=== PATIENT | female | born 1975 | race Caucasian/White ===

== ENCOUNTER 2022-05-23 18:02 | Inpatient (IN) | payer MEDICAID, SELFPAY ==
[2022-05-23 18:16] VITALS: BP 118/99; RESP 18; TEMP 36.7; O2SAT 92
[2022-05-23 18:39] LABS: Basophils # 0.1 10^3/uL (0.0-0.1); Basophils % 0.9 %; Eosinophils # 0.2 10^3/uL (0.0-0.8); Eosinophils % 1.7 %; Hematocrit 43.1 % (37.0-47.0); Hemoglobin 14.5 g/dL (11.5-15.3); Lymphocytes # 3.2 10^3/uL (0.8-4.8); Lymphocytes % 31.6 %; Mean Corpuscular HGB Conc 33.6 g/dL (30.0-36.0); Mean Corpuscular Hemoglobin 31.7 pg (28.0-34.0); Mean Corpuscular Volume 94.1 fl (81-99); Mean Platelet Volume 9.3 fL (7.4-10.4); Monocytes # 0.7 10^3/uL (0.2-0.9); Monocytes % 6.6 %; Neutrophils # 6.03 10^3/uL (1.8-7.7); Neutrophils % 58.9 %; Nucleated Red Blood Cells % 0 %; Platelet Count 348 10^3/cmm (130-400); Red Blood Count 4.58 10^6/uL (4.1-5.3); Red Cell Distribution Width 12.9 % (12.1-15.1); White Blood Count 10.2 10^3/uL (4.0-10.0)
--- NOTE | 2022-05-23 18:47 | W.ED.PSYCHS ---
HPI - Psych General: Chief Complaint: Psychiatric Symptoms Stated Complaint: SUICIDAL/ HOMICIDAL IDEATIONS Time Seen by Provider: 05/23/22 18:12 History of Present Illness: Patient arrives to the emergency room with complaints of altered mental status. Patient having full body tics, laughing hysterically and auditory hallucinations, She is in a manic state with intermittent moments of lucidity. Patient denies any suicidal homicidal ideation at this moment patient denies any substance use. Patient has episodes of tangential and pressured speech. MD complaint: altered mental status Onset (ago): unknown Duration: constant Relieving factors: none Exacerbating factors: none Associated psychiatric symptoms: racing thoughts, auditory hallucinations and delusions Associated symptoms: Reports auditory hallucinations, delusions and racing thoughts Treatments prior to arrival: none Review of Systems General: Reports: ROS unobtainable due to mental status Psych: Reports: auditory hallucinations Physical Exam Const: COMMON NORMALS: no acute distress, average body habitus, healthy appearing, alert and well nourished EXAM LIMITATIONS: altered mental status ORIENTATION/CONSCIOUSNESS: Yes oriented to person HENMT: COMMON NORMALS: normocephalic, atraumatic, hearing grossly normal bilaterally, external ears normal, Normal external nose present and moist oral mucous membranes HEAD & SCALP: normocephalic and atraumatic NOSE: Normal external nose present EXTERNAL EAR: Yes external ears normal Eye: COMMON NORMALS: Equal, round and reactive pupils present, EOMs intact bilaterally, conjunctivae normal and no scleral icterus CONJUNCTIVA: Yes conjunctivae normal PUPIL: Yes Equal, round and reactive pupils present Neck/C-Spine: COMMON NORMALS: full ROM, no lymphadenopathy, supple, no meningeal signs, no JVD and Thyroid normal THYROID: Thyroid normal Chest: COMMONS NORMALS: normal inspection of the chest and normal palpation of entire chest wall Resp: COMMON NORMALS: normal respiratory effort, No retractions, No use of accessory muscles and clear to auscultation bilaterally AUSCULTATION: clear to auscultation bilaterally Cardio: COMMON NORMALS: no JVD, regular rate, regular rhythm, S1 normal heart sound present and S2 normal heart sound present RATE: regular rate RHYTHM: regular rhythm HEART SOUNDS: S1 normal heart sound present and S2 normal heart sound present GI: COMMON NORMALS: Normal to inspection, nondistended, normoactive bowel sounds present, Soft to palpation, non-tender, No hepatosplenomegaly present and no masses PALPATION: Yes Soft to palpation and Yes No hepatosplenomegaly present Neuro: SENSORIUM/ORIENTATION: Yes alert and Yes oriented to person MENINGEAL SIGNS: Yes no meningeal signs Psych: THOUGHT CONTENT: Yes delusions, Yes Hallucination(s) present and Yes Ideas of reference present (thought content) Course Vital Signs: Vital signs: Vital Signs Temperature 98.1 F 05/23/22 18:16 Respiratory Rate 18 05/23/22 18:16 Blood Pressure 118/99 05/23/22 18:16 Pulse Oximetry 92 05/23/22 18:16 Oxygen Delivery Me thod 05/23/22 18:16 MDM - Psych Medical Decision Making Patient presents to the ER with what appears to be an acute psychosis. Patient is having auditory and visual hallucinations laughing hysterically has tangential flight of ideas and speech. Patient then become agitated and aggressive to the point of needing medicated. Patient was given 2 mg Ativan IM. Normal psych labs was obtained. Which were essentially benign other than positive from THC. Dr. Narvaez was consulted and agreed for inpatient admission. Differential Diagnosis Likely acute psychosis, chronic schizophrenia, bipolar disorder and drug-induced psychotic disorder Lab Data 05/23/22 18:25 05/23/22 18:25 Laboratory Results WBC 10.2 10^3/uL (4.0-10.0) H 05/23/22 18:25 RBC 4.58 10^6/uL (4.1-5.3) 05/23/22 18:25 Hgb 14.5 g/dL (11.5-15.3) 05/23/22 18:25 Hct 43.1 % (37.0-47.0) 05/23/22 18:25 MCV 94.1 fl (81-99) 05/23/22 18:25 MCH 31.7 pg (28.0-34.0) 05/23/22 18:25 MCHC 33.6 g/dL (30.0-36.0) 05/23/22 18:25 RDW 12.9 % (12.1-15.1) 05/23/22 18:25 Plt Count 348 10^3/cmm (130-400) 05/23/22 18:25 MPV 9.3 fL (7.4-10.4) 05/23/22 18:25 Neut % (Auto) 58.9 % 05/23/22 18:25 Lymph % (Auto) 31.6 % 05/23/22 18:25 [place] % (Auto) 6.6 % 05/23/22 18:25 Eos % (Auto) 1.7 % 05/23/22 18:25 Baso % (Auto) 0.9 % 05/23/22 18:25 Neut # (Auto) 6.03 10^3/uL (1.8-7.7) 05/23/22 18:25 Lymph # (Auto) 3.2 10^3/uL (0.8-4.8) 05/23/22 18:25 [place] # (Auto) 0.7 10^3/uL (0.2-0.9) 05/23/22 18:25 Eos # (Auto) 0.2 10^3/uL (0.0-0.8) 05/23/22 18:25 Baso # (Auto) 0.1 10^3/uL (0.0-0.1) 05/23/22 18:25 Nucleated RBC % (auto) 0 % 05/23/22 18:25 Nucleated RBCs # 0.0 /100WBC 05/23/22 18:25 Sodium 142 mmol/L (136-145) 05/23/22 18:25 Potassium 4.5 mmol/L (3.5-5.1) 05/23/22 18:25 Chloride 102 mmol/L (98-107) 05/23/22 18:25 Carbon Dioxide 25 mmol/L (22-29) 05/23/22 18:25 Anion Gap 19.5 (5-19) H 05/23/22 18:25 BUN 13 mg/dL (6-20) 05/23/22 18:25 Creatinine 0.7 mg/dL (0.5-0.9) 05/23/22 18:25 GFR Calculation 89.3 mL/min (90-130) L 05/23/22 18:25 Glucose 74 mg/dL (65-115) 05/23/22 18:25 Calculated Osmolality 293 mOsm/kg (285-295) 05/23/22 18:25 Calcium 9.4 mg/dL (8.5-10.5) 05/23/22 18:25 Total Bilirubin 0.6 mg/dL (0.15-1.2) 05/23/22 18:25 AST 19 U/L (0-32) 05/23/22 18:25 ALT 11 U/L (0-33) 05/23/22 18:25 Alkaline Phosphatase 76 U/L (35-105) 05/23/22 18:25 Total Protein 6.9 g/dL (6.6-8.7) 05/23/22 18:25 Albumin 4.4 g/dL (3.5-5.2) 05/23/22 18:25 Globulin 2.5 g/dL (1.3-4.6) 05/23/22 18:25 HCG, Qual Negative (Negative) 05/23/22 19:26 Urine Color Yellow (Yellow) 05/23/22 19:26 Urine Appearance Clear (CLEAR) 05/23/22 19:26 Urine pH 5 (5-7) 05/23/22 19:26 Ur Specific [place] 1.025 (1.005-1.030) 05/23/22 19:26 Urine Protein Trace (Negative) 05/23/22 19:26 Urine Glucose (UA) Norm (Normal) 05/23/22 19:26 Urine Ketones 2+ (Negative) H 05/23/22 19:26 Urine Blood 2+ (Negative) H 05/23/22 19:26 Urine Nitrate Negative (Negative) 05/23/22 19:26 Urine Bilirubin Neg (Negative) 05/23/22 19:26 Urine Urobilinogen Norm mg/dL (Negative) 05/23/22 19:26 Ur Leukocyte Esterase Trace (Negative) H 05/23/22 19:26 Urine RBC 0-4 /hpf (0-2) H 05/23/22 19:26 Urine WBC 5-10 /hpf (0-5) H 05/23/22 19:26 Ur Squamous Epith Cells 10-15 /hpf (0-5) H 05/23/22 19:26 Amorphous Sediment Not Reportable 05/23/22 19:26 Urine Bacteria 1+ /hpf (NONE) H 05/23/22 19:26 Urine Mucus 4+ /hpf 05/23/22 19:26 Salicylates < 0.3 mg/dL (3-10) L 05/23/22 18:25 Urine Opiates Screen Negative ng/mL (Negative) 05/23/22 19:26 Acetaminophen < 5.0 ug/mL (10-30) L 05/23/22 18:25 Ur Barbiturates Screen Negative ng/mL (Negative) 05/23/22 19:26 Ur Phencyclidine Scrn Negative ng/mL (Negative) 05/23/22 19:26 Ur Amphetamines Screen Negative ng/mL (Negative) 05/23/22 19:26 U Benzodiazepines Scrn Negative ng/mL (Negative) 05/23/22 19:26 Urine Cocaine Screen Negative ng/mL (Negative) 05/23/22 19:26 U Marijuana (THC) Screen Positive ng/mL (Negative) H 05/23/22 19:26 Ethyl Alcohol < 10 mg/dL (0-10) 05/23/22 18:25 Discharge Plan Discharge Patient Disposition: Admitted As Inpatient Clinical Impression: Acute psychosis Condition: Stable Prescriptions: No Action No Known Home Medications Referrals: Sarah Lo HAND TWISTER [Primary Care Provider] - Coding Level of Care Code ED [facility] for Ayaz Kendrick
[2022-05-23 18:59] LABS: Alanine Aminotransferase 11 U/L (0-33); Albumin Level 4.4 g/dL (3.5-5.2); Alkaline Phosphatase 76 U/L (35-105); Anion Gap 19.5 (5-19); Aspartate Amino Transferase 19 U/L (0-32); Blood Urea Nitrogen 13 mg/dL (6-20); Calcium 9.4 mg/dL (8.5-10.5); Carbon Dioxide 25 mmol/L (22-29); Chloride 102 mmol/L (98-107); Globulin 2.5 g/dL (1.3-4.6); Glomerular Filtration Rate 89.3 mL/min (90-130); Glucose 74 mg/dL (65-115); Osmolality Calculated 293 mOsm/kg (285-295); Potassium 4.5 mmol/L (3.5-5.1); Sodium 142 mmol/L (136-145); Total Bilirubin 0.6 mg/dL (0.15-1.2); Total Protein 6.9 g/dL (6.6-8.7)
[2022-05-23 19:02] LABS: Acetaminophen < 5.0 ug/mL (10-30); Alcohol Level < 10 mg/dL (0-10); Salicylate < 0.3 mg/dL (3-10)
--- NOTE | 2022-05-23 19:51 | PC.NURSE ---
cad application support specialist had staff nurse talk to pt. PT was found by staff nurse fondling her genitalia. Pt was advised to stop, and it was reported that she was hitting the wall with her head. Pt was redirected by staff nurse. Pt complied.
[2022-05-23 19:52] LABS: HCG Qualitative Urine. Negative (Negative)
[2022-05-23] MEDS: LORazepam 2 mg/mL INJ 1 mL IM (20:12)
[2022-05-23 20:14] LABS: Add Urine Microscopic? YES; Bilirubin Urine Neg (Negative); Blood Urine 2+ (Negative); Glucose Urine UA Norm (Normal); Ketones Urine 2+ (Negative); Leukocyte Esterase Urine Trace (Negative); Nitrate Urine Negative (Negative); Protein Urine Trace (Negative); Specific Gravity, Urine 1.025 (1.005-1.030); Urine Appearance Clear (CLEAR); Urine Color Yellow (Yellow); Urobilinogen Urine Norm (Negative); pH Urine 5 (5-7)
[2022-05-23 20:15] LABS: Add Urine Culture? No; Bacteria Urine 1+ /hpf; Mucus Urine 4+ /hpf; RBC Urine 0-4 /hpf (0-2)
[2022-05-23 20:27] LABS: Amphetamines Screen Urine Negative (Negative); Barbiturates Screen Urine Negative (Negative); Benzodiazepines Screen Urine Negative (Negative); Cocaine Screen Urine Negative (Negative); Opiate Screen Urine Negative (Negative); PCP Screen Urine Negative (Negative); THC Screen Urine Positive (Negative)
--- NOTE | 2022-05-23 23:20 | PC.NURSE ---
report called to rosendo MORFIN
[2022-05-23 23:35] VITALS: RESP 16
--- NOTE | 2022-05-23 23:40 | PC.NURSE ---
pt refusing admission assessment or to change out into unit scrubs. wanded and no metal was detected. pt room close to nurses station so door will remain open for safe monitoring until pt can/will comply with changing out.
[2022-05-24] VITALS: RESP 18
--- NOTE | 2022-05-24 00:01 | PC.NURSE ---
pt refused v/s upon entry to the NPU.
[2022-05-24] MEDS: LORazepam 2 mg/mL INJ 1 mL IM ×2 (03:40→11:00)
[2022-05-24] MEDS: haloperidol inj 5 mg/mL INJ 1 mL IM ×2 (03:40→11:00)
[2022-05-24] MEDS: diphenhydrAMINE 50 mg/mL SDV 1mL IM ×2 (03:40→11:00)
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
[2022-05-24 06:00] VITALS: RESP 16
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
--- NOTE | 2022-05-24 09:07 | PC.NURSE ---
patient given PRNs during the night and remains asleep with snoring even respirations. Did not wake patient for breakfast
--- NOTE | 2022-05-24 12:13 | W.PM.BREST ---
Face to Face: Restrn/Seclusion Events leading up to initiation: Verbalizing threat to self or others and Combative/Striking out at staff or others Evaluation of patient's immediate situation: Alert and oriented Patient reaction since intervention applied: De-escalation/no displays of violent/destructive behavior Recent labs reviewed: Yes Review of medications: Yes Patient's current medical/behavioral condition: No new concerns since last ROS Need for restraint or seclusion is: No longer present Attending notified: Attending completed assessment
--- NOTE | 2022-05-24 12:43 | PC.NURSE ---
event started 1036 Pt walked into the dayroom area without pants on, naked from the waist down. Nursing staff asked 2 male pt's to please exit the dayroom. Pt was yelling and screaming that she wanted her dad and her daughter to come to the unit!! Nurse asked pt to please get dressed and then we could assist pt with making phone calls. Pt refused to get dressed and to give up her bra that had underwires in it, which is a safety hazard on this unit. Pt kept screaming that she didn't care that she loves to be naked! Nurse noticed visible stool on pt's arms and legs, nurse began to help use wipes to clean up the pt. Pt refused to get dressed, nurse placed a sheet around pt and pt walked up to the phone to make a call. Redirection was not working on pt, pt not complying with unit rules. Code 10 was called and lots of personal responded. This nurse pulled the medications, 2mg Ativan IM, 50mg Benadryl IM, 5mg Haldol IM. Jack brown responded, Bryant Caceres responded, continuous weld pipe mill supervisor was present and actively helping with the pt. Security was present. Pt still refusing to cooperate. Staff went hands on for a manual hold, just long enough to administer the medications. Pt was escorted to her room and helped with cleaning up the stool on her body, nurses helped change pt out and was able to retrieve the bra from the pt. Pt was very nice and polite and laid down for a nap.
[2022-05-24 14:00] VITALS: RESP 15
[2022-05-24 22:00] VITALS: RESP 16
[2022-05-25] MEDS: haloperidol inj 5 mg/mL INJ 1 mL IM (02:26)
[2022-05-25] MEDS: LORazepam 2 mg/mL INJ 1 mL IM (02:26)
[2022-05-25] MEDS: diphenhydrAMINE 50 mg/mL SDV 1mL IM (02:27)
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
[2022-05-25 06:00] VITALS: RESP 15
[2022-05-25] MEDS: nicotine 2 mg Gum BUCCAL ×3 (09:03→18:06)
[2022-05-25] MEDS: loratadine 10 mg Tablet PO (12:45)
[2022-05-25 14:00] VITALS: BP 150/102; PULSE 108; RESP 18; TEMP 36.6; O2SAT 99
--- NOTE | 2022-05-25 17:05 | W.PM.NPUPNS ---
Subjective NPU Subjective: Patient is a 47-year-old white female admitted with acute psychosis. She remains here on a 96-hour hold. She had not been aggressive today and had been redirectable. She had reported having no sleep for several days. She had described in the past having been placed on lithium for treating an unspecified problem but states that it affected her thyroid. She had reported that she was willing to get help for any thing that would help her sleep. She had reported having gone many years without receiving treatment with psychotropic medications. Staff notes the patient appeared to be pacing but was redirectable with no acts of aggression noted. Mental Status Exam MSE Comments: The patient appears older than her stated age. She is a thin white female with poor hygiene and normal gait. There was no evidence of any abnormal involuntary motor movements tics or tremors appreciated. She was pleasant and pacing the hallway during our interview but was engaged in the conversation. Her speech was rapid in rate and normal in volume and prosody. Her mood was described as okay. Her affect appeared somewhat flat. Her thought process was at times tangential. Her thought content showed no evidence of active homicidal or suicidal ideation. There appeared to be some overvalued ideas and paranoia. There were no clear overt bizarre delusions noted though. Her insight was poor. Her judgment is poor. Her impulse control remained limited. She was alert and oriented to person place and time. Vitals/I&O/Wt Last Vital Signs Temp 97.8 F 05/25/22 14:00 Pulse 108 H 05/25/22 14:00 Resp 18 05/25/22 14:00 BP 150/102 05/25/22 14:00 Pulse Ox 99 05/25/22 14:00 O2 Del Method Room Air 05/23/22 22:01 Weight last 48 hrs Weight 68.039 kg Data NPU 05/23/22 18:25 05/23/22 18:25 A&P Assessment and plan (1) Bipolar affective, manic, unspec: Plan The patient is a 47-year-old white female who presents acutely psychotic with causes unknown currently involuntarily hospitalized and unable to provide any clear history at this time. She will continue to require acute inpatient hospitalization. 1.? Engage patient in individual ,milieu, and group therapy 2. Begin Invega 3mg at night 3. TO-15 minute checks on the unit Involuntary Hold Information 96 Hour Hold: 96 Hour Involuntary Admission: Yes 96 Hour Hold Ending Date: 05/29/22 96 Hour Hold Ending Time: 20:42 Attestations NPU Medical Necessity Statement*: Inpatient hospitalization is medically necessary and deemed to be the clinically appropriate decision at this time. We will initiate medications and make changes as indicated. Her likely length of stay is 7 to 10 days. Coding Level of Care Code Acute Code for g Fwd Diagnoses Bipolar affective, manic, unspec F31.10
[2022-05-25] MEDS: paliperidone ER 3 mg Tablet PO (21:34)
[2022-05-25 21:49] VITALS: BP 140/96; PULSE 105; RESP 16; TEMP 36.6; O2SAT 98
[2022-05-26] MEDS: nicotine 4 mg lozenge MUCOUS MEM (05:27)
[2022-05-26 06:00] VITALS: BP 124/86; PULSE 109; RESP 16; TEMP 36.9; O2SAT 97
[2022-05-26] MEDS: loratadine 10 mg Tablet PO (08:09)
[2022-05-26] MEDS: nicotine 2 mg Gum BUCCAL ×3 (09:06→18:22)
[2022-05-26 12:05] LABS: Thyroid Stimulating Hormone 4.71 uIU/mL (0.27-4.20)
[2022-05-26 14:00] VITALS: BP 133/85; PULSE 111; RESP 18; TEMP 36.5; O2SAT 97
[2022-05-26] MEDS: paliperidone ER 3 mg Tablet PO ×2 (15:15→21:18)
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
--- NOTE | 2022-05-26 16:05 | PC.NURSE ---
Patient became agitated during group hours because she was not allowed to use the phone. Began cursing about needing to call her dad to get a good classifications officer cc/cm. Doctor ordered a dose of 3mg Invega to be given and patient seemed to calm after administration.
[2022-05-26 22:00] VITALS: BP 146/88; PULSE 107; RESP 18; TEMP 36.7; O2SAT 97
[2022-05-26] MEDS: hydrocortisone 2.5% cream 28 gm 1 APPLIC TOPICAL (22:32)
[2022-05-27] MEDS: nicotine 2 mg Gum BUCCAL ×5 (02:29→18:08)
[2022-05-27] MEDS: OLANZapine 5 mg ODT PO ×2 (03:04→22:09)
[2022-05-27 06:00] VITALS: BP 116/78; PULSE 110; RESP 15; TEMP 36.8; O2SAT 97
[2022-05-27] MEDS: loratadine 10 mg Tablet PO (08:23)
--- NOTE | 2022-05-27 11:44 | PC.NURSE ---
About 929 pt informed MD had ordered her Invega. Pt refused to take it because it should have been given with her morning meds. Pt said she'd need to talk to the MD first.
[2022-05-27 14:00] VITALS: BP 117/82; PULSE 110; RESP 18; TEMP 36.8; O2SAT 97
--- NOTE | 2022-05-27 18:00 | P.NPUPN_ITS ---
Subjective NPU Subjective: Patient is a 47-year-old white female admitted with acute psychosis. She had improved sleep and continued to require some prn medications for agitation. She reported good visit with family member today and states that she had difficulty with being distracted by her thoughts. She reports that she had been overly focused on friend from the past whose daughter had . She reports th at she has felt her thoughts had been moving more slowly. She was irritable earlier in the day but appeared less agitated during the afternoon. She had continue to pace on the unit. Mental Status Exam MSE Comments: The patient appears older than her stated age. She is a thin white female with poor hygiene and normal gait. There was no evidence of any abnormal involuntary motor movements tics or tremors appreciated. She was more calmer and pacing the hallway during our interview but was engaged in the conversation. Her speech was rapid in rate and normal in volume and prosody. Her mood was described as better Her affect appeared slightly subdued. Her thought process was Her thought process was expansive and tangential at times. Her thought content lizzy wed no evidence of active homicidal or suicidal ideation. There appeared to be some overvalued ideas and paranoia. There were no clear overt bizarre delusions noted though. Her insight was poor. Her judgment is poor. Her impulse control remained limited. She was alert and oriented to person place and time. Vitals/I&O/Wt Last Vital Signs Temp 98.2 F 05/27/22 14:00 Pulse 110 H 05/27/22 14:00 Resp 18 05/27/22 14:00 BP 117/82 05/27/22 14:00 Pulse Ox 97 05/27/22 14:00 O2 Del Method Room Air 05/27/22 06:00 Data NPU 05/23/22 18:25 05/23/22 18:25 A&P Assessment and plan (1) Bipolar affective, manic, unspec: Plan The patient is a 47-year-old white female who presents acutely psychotic with unknown psychiatric history. She remains hospitalized on an involuntary basis at this time. She will continue to require acute inpatient hospitalization. 1.? Engage patient in individual ,milieu, and group therapy 2. Continue invega to 6mg daily. 3. TO-15 minute checks on the unit 4. Will attempt to gather collateral information. Involuntary Hold Information 96 Hour Hold: 96 Hour Involuntary Admission: Yes 96 Hour Hold Ending Date: 05/29/22 96 Hour Hold Ending Time: 20:42 Attestations NPU Medical Necessity Statement*: Inpatient hospitalization is medically necessary and deemed to be the clinically appropriate decision at this time. We will initiate medications and make changes as indicated. Her likely length of stay is 7 to 10 days. Coding Level of Care Code Acute Code for g Fwd Diagnoses Bipolar affective, manic, unspec F31.10
[2022-05-27 22:00] VITALS: BP 125/87; PULSE 92; RESP 17; TEMP 36.6; O2SAT 98
[2022-05-28 06:00] VITALS: BP 119/85; PULSE 95; RESP 16; O2SAT 99
[2022-05-28] MEDS: loratadine 10 mg Tablet PO (08:56)
[2022-05-28] MEDS: nicotine 2 mg Gum BUCCAL ×3 (08:56→23:31)
[2022-05-28 14:00] VITALS: BP 143/90; PULSE 86; RESP 18; TEMP 36.5; O2SAT 99
[2022-05-28] MEDS: blistex lip oint 7 gm Tube 1 APPLIC TOPICAL (14:08)
--- NOTE | 2022-05-28 15:28 | PC.NURSE ---
patient has continued to be intrusive to staff and other patients. Patient has gone to other rooms to get them to engage her with activities. She comes to the nurses station asking for different things for other patients. when asked about this she deflected the request and said she was sorry she made this typewriters functional tester mad. Explained that there was no anger and her assistance was appreciated by staff but other patients may not be as accepting of her help. She then starting speaking of everything she has done today, such as empty the trash, clean the windows, take other peoples trays, etc.
[2022-05-28] MEDS: OLANZapine 5 mg ODT PO (15:56)
--- NOTE | 2022-05-28 16:06 | PC.NURSE ---
Patient tearful after being asked to try not to be so intrusive to other patients. Patient was told that her caring traits were admirable but for now to concentrate on her own care and let staff assist the other patients. She was OK with this, given Olanzapine 5mg ODT and then taken outside for some air.
--- NOTE | 2022-05-28 17:07 | P.NPUPN_ITS ---
Subjective NPU Subjective: Patient is a 47-year-old white female admitted with acute psychosis. She reports that she felt better that her thyroid problems were no longer present despite not having been on lithium for several months. Patient had appeared somewhat loud on the unit spending much time pacing and engaging in conversation and the business of other peers. She had appeared at times intrusive. She had reported improved sleep stating that she had slept 6 hours last night. She had continually required time of this sql report writer asking to talk to me regarding various subjects. She did report that her thoughts continued to race and she continued to report that she was relieved that she would be able to return home without her paramore being involved in her life. Mental Status Exam MSE Comments: The patient appears older than her stated age. She is a thin white female with poor hygiene and normal gait. There was no evidence of any abnormal involuntary motor movements tics or tremors appreciated. He did appear to have increased psychomotor activity. She appeared overly intrusive often interrupting others. Her speech was rapid in rate and normal in volume and prosody. Her mood was described as better Her affect excessively euphoric and intense at times. Her thought process was tangential and expansive at times. Her thought content showed no evidence of active homicidal or suicidal ideation. There appeared to be some overvalued ideas and paranoia. There was evidence of magical thinking and ideas of reference. There were no clear overt bizarre delusions noted though. Her insight was poor. Her judgment is poor. Her impulse control remained limited. She was alert and oriented to person place and time. Vitals/I&O/Wt Last Vital Signs Temp 97.7 F 05/28/22 14:00 Pulse 86 05/28/22 14:00 Resp 18 05/28/22 14:00 BP 143/90 05/28/22 14:00 Pulse Ox 99 05/28/22 14:00 O2 Del Method Room Air 05/28/22 06:00 Weight last 48 hrs Weight 68.039 kg Data NPU 05/23/22 18:25 05/23/22 18:25 A&P Assessment and plan (1) Bipolar affective, manic, unspec: (2) Psychotic disorder: Plan The patient is a 47-year-old white female who presents acutely psychotic with unknown psychiatric history. She remains hospitalized on an involuntary basis at this time. She will continue to require acute inpatient hospitalization. 1.? Engage patient in individual ,milieu, and group therapy 2. Continue invega to 6mg at night. 3. TO-15 minute checks on the unit 4. Will attempt to gather collateral information. Involuntary Hold Information 96 Hour Hold: 96 Hour Involuntary Admission: Yes 96 Hour Hold Ending Date: 05/29/22 96 Hour Hold Ending Time: 20:42 Attestations NPU Medical Necessity Statement*: Inpatient hospitalization is medically necessary and deemed to be the clinically appropriate decision at this time. We will initiate medications and make changes as indicated. Her likely length of stay is 4-6 days. Coding Level of Care Code Acute Code for Chg Fwd Diagnoses Bipolar affective, manic, unspec F31.10 Psychotic disorder F29
[2022-05-28 19:50] VITALS: BP 137/90; PULSE 106; RESP 18; TEMP 36.7; O2SAT 98
[2022-05-28] MEDS: acetaminophen 325 mg Tablet 650 MG PO (21:56)
[2022-05-28] MEDS: paliperidone ER 6 mg Tablet PO (21:56)
[2022-05-28] MEDS: hydrocortisone 2.5% cream 28 gm 1 APPLIC TOPICAL (21:59)
[2022-05-29] MEDS: OLANZapine 5 mg ODT PO ×2 (01:17→09:52)
[2022-05-29] MEDS: diphenhydrAMINE 50 mg Capsule PO ×3 (04:29→16:31)
[2022-05-29 06:00] VITALS: BP 129/86; PULSE 107; RESP 18; TEMP 36.8; O2SAT 97
--- NOTE | 2022-05-29 07:52 | PC.NURSE ---
Pt came to nurses station reporting she has a rash. She began making demands of staff, wanting to know what meds she's been taking, demanding to see the rn social work staff even though she's been told when they typically come. Pt continued to tell people what she wanted. Staff asked pt to move away from the desk. She continued talking. Staff raised her hand in an effort to get pt to stop talking. She became verbally abusive to staff, calling her a bitch. Pt said she needed help with identifying which meds she's been taking because of the rash, and said she wanted to talk to rn social work for help in getting a restraining order. supervisor tower here and also spoke with pt, telling her the same thing staff had told her. Pt made a call, then went down the olivarez. When Garrett, social security assessor, arrived, staff informed him pt wanted to see him; pt immediately connected with him as he walked down the olivarez to his office.
--- NOTE | 2022-05-29 08:43 | PC.NURSE ---
Pt came to nurses station saying she would like to speak with the MD today. SHELBIE Nolasco confirmed the MD would be here today and was expected to see every patient. Pt commented that because today was a new Sunday, she felt the need to repeat this. Pt commented she believed this narrative writer was here yesterday and wouldn't help her. Staff informed pt staff wasn't here yesterday. PT provided staff a copy of the handout Whay? Me Worry? because she thought it would help staff better do her job.
--- NOTE | 2022-05-29 08:52 | P.NPUPN_ITS ---
Subjective NPU Subjective: Patient is a 47-year-old white female admitted with acute psychosis and rosas. She had been very agitated throughout the day today requiring multiple as needed medications. A request was made for a continued stay in the hospital involuntarily if she remained actively psychotic and paranoid. She was sick if currently agitated while making unrealistic demands and verbal request. She had required significant redirection and prompting. She had reported having developed a rash throughout her body over the last day and it appears that the patient had only received 1 dose of Invega. She was agreeable to discontinuation of this medication. She had slept only 1 to 2 hours last night and required significant as needed's to help her fall asleep that appeared to be on a ineffective. She stated that she felt that her mind was always racing and that this was the way she typically was all of her life. Information gathered from family members had stated that this was not her typical behavior. Mental Status Exam MSE Comments: The patient appears older than her stated age. She is a thin white female with poor hygiene and normal gait. There was no evidence of any abnormal involuntary motor movements tics or tremors appreciated. He did appear to have increased psychomotor activity. She appeared overly intrusive often interrupting others. Her speech was rapid in rate and increase in volume and prosody. Her mood was described as better Her affect was extremely irritable and mood incongruent. her thought process was tangential and expansive at times. Her thought conten t showed no evidence of active homicidal or suicidal ideation. There appeared to be some overvalued ideas, paranoia. There was evidence of magical thinking and ideas of reference. There were no clear overt bizarre delusions noted though. Her insight was poor. Her judgment is poor. Her impulse control remained limited. She was alert and oriented to person place and time. Vitals/I&O/Wt Last Vital Signs Temp 98.2 F 05/29/22 06:00 Pulse 107 H 05/29/22 06:00 Resp 18 05/29/22 06:00 BP 129/86 05/29/22 06:00 Pulse Ox 97 05/29/22 06:00 O2 Del Method Room Air 05/29/22 06:00 Weight last 48 hrs Weight 63.503 kg Weight 68.039 kg Data NPU 05/23/22 18:25 04/11/23 18:25 A&P Assessment and plan (1) Bipolar affective, manic, unspec: (2) Psychotic disorder: Plan The patient is a 47-year-old white female who presents acutely psychotic with unknown psychiatric history. She remains hospitalized on an involuntary basis at this time. She will continue to require acute inpatient hospitalization. 1.? Engage patient in individual ,milieu, and group therapy 2. Discontinue Invega. Begin Zyprexa 10 mg at night to target rosas 3. TO-15 minute checks on the unit 4. Will attempt to gather collateral information. Involuntary Hold Information 96 Hour Hold: 96 Hour Involuntary Admission: Yes 96 Hour Hold Ending Date: 05/29/22 96 Hour Hold Ending Time: 20:42 Attestations NPU Medical Necessity Statement*: Inpatient hospitalization is medically necessary and deemed to be the clinically appropriate decision at this time. We will initiate medications and make change s as indicated. Her likely length of stay is 4-6 days. Coding Level of Care Code Acute Code for [facility] Diagnoses Bipolar affective, manic, unspec F31.10 Psychotic disorder F29
--- NOTE | 2022-05-29 09:19 | PC.NURSE ---
Spoke with MD about pt, her bahaviors and demands. New orders received. Pt refused to take her AM meds, the one-time clonazepam, and zyprexa until such time as she can talk with the MD as she doesn't want to be drugged. Pt said she has only been trying to get help since 7 o'clock this AM. Pt with pressured with her speech. Pt stood outside the med room door and yelled at staff through the door for talking about her, claiming it was a HIPAA violation. Pt was asked to move away from the door. Pt continues to vocalize about needing a restraining order so she can go home. tailings worker and MD are currently in a meeting; pt is aware of this.
--- NOTE | 2022-05-29 11:17 | PC.NURSE ---
Pt again verbally rude and perseverating on wanting to go home, to talk to the MD, repeatedly talks about not sleeping for 30 hours. Pt recently received Benadryl per her request; said she'd take it now. Pt now verbalizing staff doesn't care for her, claimed staff was talking down to her when staff hadn't spoken to the pt. Pt waiting to visit with the MD.
--- NOTE | 2022-05-29 11:34 | PC.NURSE ---
Pt again demonstrating manic behaviors. Pt talking loudly. Pt reported she wanted a new doctor. When staff attempted to inform the pt how things were done here and she'd see another doctor when they rotated their assignment, pt wouldn't listen. Pt informed she needed to calm herself or staff would need to administer an injection for her. She returned to her room and laid on her bed briefly. Has been on the phone.
[2022-05-29] MEDS: ziprasidone 20 mg/mL SDV IM (12:08)
--- NOTE | 2022-05-29 12:22 | PC.NURSE ---
Pt continuing to be very vocal; manic; verbally abusive to staff calling staff bitches, cunts, and the like. Pt informed she was going to get an injection of Geodon. She refused saying it was her right to refuse. Pt is currently on a 96 hr hold and a 21 day hold is being submitted. Received approval from Dr. Em to give the injection. Pt making threatening statements, claiming she would hit this staff member if this staff member tried to give her the injection. Pt sat on the floor in the corner by the bench across from the nurses station and continued to make similar comments against staff. Code 10 activated. Pt was directed to her room by security and pt allowed SHELBIE Nolasco to complete the injection into pt's right buttock. Prior to the injection the pt grabbed her butt cheek and said, Come get some of this. SHELBIE Nolasco had to move the pt's thumb in order to give the injection. Pt tolerated the procedure well, though continued to loudly denigrate staff. [place], Shell Mold Bonding Machine Operator, spoke with pt. Pt was moved to room 170. Doors remain open. Pt is not in seclusion.
[2022-05-29 14:00] VITALS: RESP 20
--- NOTE | 2022-05-29 14:40 | PC.NURSE ---
Pt came to nurses station to complain she didn't get her soup with her salad earlier for lunch. Pt continues to make disparaging remarks about this lyric writer claiming staff is worthless and should be working here. Pt walked down to the day room then returned to her room, slamming her outer door in the process. This lyric writer went to pt's room to unlock the room door. Pt reminded she could close the inner door to her room because there was a window in the door, but she was not allowed to close the outer door. Pt simply stared at staff in response. The outer door was positioned so it was wide open.
--- NOTE | 2022-05-29 16:33 | PC.NURSE ---
Administered 50mg Benadryl to patient for rash located on inner thighs.
[2022-05-29] MEDS: diphenhydrAMINE 50 mg/mL SDV 1mL IM (16:48)
[2022-05-29] MEDS: haloperidol inj 5 mg/mL INJ 1 mL IM (16:49)
[2022-05-29] MEDS: LORazepam 2 mg/mL INJ 1 mL IM (16:49)
--- NOTE | 2022-05-29 16:50 | PC.NURSE ---
Pt became agitated after not being able to reach people on the phone. Pt wants to go home. Aware a 21 day hold has been filed. Pt believes she is being held against her will. crisis counselor came to see pt. Pt was unwilling to see this person saying she didn't know who she was and how did she have her file. Pt was unwilling to give juvenile counselor an opportunity to explain what was going to happen as she has court tomorrow. Pt began yelling down the olivarez, yelling for coffee, yelling that she needed her glasses so she could take out her contacts, making disparaging remarks about staff and social secretary being bitches. Pt threw straws and the lid from her drink. She hadn't been able to reach her family so they could bring her her glasses. Pt reports she needs to get her contacts out. Pt was redirected towards her room and she tried to enter her old room 151. Pt was redirected to room 170 but refused to go. Wade from Security here and worked with the staff to get the patient to go to her room. Pt tried to get staff to give her medication in the olivarez bathroom but staff needed to use each buttock so pt was directed again down to room 170. She only complied after staff asked to have another Code 10 called. The code was canceled. Pt leaned over her bed while pulling her pants down. She began pulling her buttocks apart and played with the hemorrhoids at her anus, taunting staff to poke her there, then made disparaging remarks about this staff, praising this staff for being able to give the shot like a good nurse. Once the injections were given the pt stood up and walked out of the room. Staff followed the pt down the olivarez. She said she was going to make a phone call. Pt was instructed to wash her hands first. She said she would not and began wiping her hands all over the glass partition at the nurses station and on staff's computer. Pt was reminded she could be held responsible if she damaged equipment. Pt just kept talking loudly and walked away. [place], Recruiting Internship,talked with patient and walked with her in the olivarez. Pt made rude comments, asking him if he wanted to come with her while she took a shit. crisis counselor left her card as the pt was on the phone when she wanted to speak with her again. Pt refused to accept the card so it was left at the nurses station. The laborer bituminous paving said if the pt needed to contact her before court, she could call her in the AM. Staff reported receiving a call from the pt's family asking for her to not call them anymore. Unable to do this. They will need to block her calls on their end. environmental services director notified of this request. Nikki reported she'd left a message with the parents the pt needed her glasses.
--- NOTE | 2022-05-29 17:52 | PC.NURSE ---
Patient's family member Shanelle called. Patient called her father and told him that when she is released from NPU, she is going to go to a [place] and shoot herself. Wrote a note to leave for Dr. Em explaining to him what family member said. Will monitor
--- NOTE | 2022-05-29 18:49 | PC.NURSE ---
patient refused vitals.
--- NOTE | 2022-05-29 18:56 | PC.NURSE ---
Pt appears tired. Refused to return to her room and lay down; visited with Dr. Em, Pt much calmer now after IM medications.
[2022-05-29 21:06] VITALS: BP 118/79; PULSE 122; RESP 18; TEMP 36.8; O2SAT 98
[2022-05-30] MEDS: LORazepam 2 mg/mL INJ 1 mL IM (04:42)
[2022-05-30] MEDS: diphenhydrAMINE 50 mg/mL SDV 1mL IM (04:42)
[2022-05-30] MEDS: haloperidol inj 5 mg/mL INJ 1 mL IM (04:42)
--- NOTE | 2022-05-30 04:48 | PC.NURSE ---
399-pt sitting on bed upon rounding. when asked if she was ok pt stated i am not i just want to fucking get out of here . pt remained in room for a few minutes and then came to the nurses station yelling at staff about court and was not redirectable. many attempts made to redirect pt to be quieter as other pts were sleeping. pt asked to shower and went down the olivarez back to her room singing loudly and cursing about [place]. pt approached before getting into the shower and asked to come out and take some medications to aid with her agitation. pt refused and undressed and got into the shower. she sang and cursed loudly the entire time. once out of the shower pt continue to yell loudly and slam doors. pt approached by staff and asked to take medications. pt initially upset and refusing but after speaking with this advertising writer for a moment the pt complied with no issues or need for restraint. this staff engaged and debriefed pt after giving PRN IM injections. pt upset but calming some afterwards. states she wants to understand her medications and the reason for her admission and possible 21 day stay. pt does not feel this is necessary as my ex has moved out of my house now and that was the problem. I am fine. I will take my medication that they prescribe and I will be fine. as of 444 pt was calm and quiet in her room having a snack and drink. will continue to monitor.
--- NOTE | 2022-05-30 05:16 | PC.NURSE ---
0500-pt sleeping at this time. will continue to monitor.
[2022-05-30 05:19] VITALS: BP 110/79; PULSE 122; RESP 22; TEMP 36.6; O2SAT 97
--- NOTE | 2022-05-30 09:09 | PC.NURSE ---
Pt was awakened to come down to the nurses station as the police were here to serve her for court today. Pt was a little unsteady on her feet initially, but became more steady as she walked. Staff was next to her as she walked. RICARDO served the pt her papers. The pt said she wanted her clothes if she was to go to court. Pt informed pts typically went in scrubs. Pt threw the papers presented her onto the floor and walked away. Staff picked up the papers and they were taken to the pt's room. As pt walked away, she replied, Fuck you bitch.
--- NOTE | 2022-05-30 13:41 | PC.NURSE ---
gave pt soy seeing eye glasses that were brought in for her. pt states that she plans on throwing away the contact lens that she had on.
[2022-05-30 14:00] VITALS: BP 124/80; PULSE 96; RESP 16; TEMP 36.7; O2SAT 98
--- NOTE | 2022-05-30 15:10 | PC.NURSE ---
pt currently off unit for court. pt escorted by officer of the court.
--- NOTE | 2022-05-30 16:25 | PC.NURSE ---
pt is back on the unit after court transported by cashier courtesy booth
[2022-05-30] MEDS: nicotine 2 mg Gum BUCCAL (17:32)
--- NOTE | 2022-05-30 18:36 | W.PM.NPUPNS ---
Subjective NPU Subjective: Patient is a 47-year-old white female admitted with acute psychosis and rosas. Patient had continue to require as needed medications for agitation and irritability. She had refused her Zyprexa last night. She was placed on a 21-day hold during the hearing. Patient had reported that she had not been using methamphetamines and that she had simply not been sleeping well. Staff notes patient slept only 2 to 3 hours and was very disruptive last night. She had endorsed that she was feeling great. She had reported that she should have been given the opportunity to return home despite her family had having supported the idea that she was unsafe in her home environment. Mental Status Exam MSE Comments: The patient appears older than her stated age. She is a thin white female with poor hygiene and normal gait. There was no evidence of any abnormal involuntary motor movements tics or tremors appreciated. She did appear to have increased psychomotor activity. She appeared overly intrusive often interrupting others. Her speech was rapid in rate and increase in volume and prosody. Her mood was described as all right. Her affect was extremely irritable and mood incongruent. her thought process was tangential and expansive at times. Her thought content showed no evidence of active homicidal or suicidal ideation. There appeared to be some overvalued ideas, paranoia. There was evidence of magical thinking and ideas of reference. There were no clear overt bizarre delusions noted though. Her insight was poor. Her judgment is poor. Her impulse control remained limited. She was alert and oriented to person and place. Vitals/I&O/Wt Last Vital Signs Temp 98.1 F 05/30/22 14:00 Pulse 96 05/30/22 14:00 Resp 16 05/30/22 14:00 BP 124/80 05/30/22 14:00 Pulse Ox 98 05/30/22 14:00 O2 Del Method Room Air 05/30/22 14:00 Weight last 48 hrs Weight 63.503 kg Data NPU 05/23/22 18:25 05/23/22 18:25 A&P Assessment and plan (1) Bipolar affective, manic, unspec: (2) Psychotic disorder: Plan The patient is a 47-year-old white female who presents acutely psychotic with unknown psychiatric history. She remains hospitalized on an involuntary basis at this time. She will continue to require acute inpatient hospitalization. 1.? Engage patient in individual ,milieu, and group therapy 2. Discontinue Invega. Begin Haldol 5mg bid, if refuse, Haldol IM 5mg for each dose. 3. TO-15 minute checks on the unit 4. Will attempt to gather collateral information. Involuntary Hold Information 96 Hour Hold: 96 Hour Involuntary Admission: Yes 96 Hour Hold Ending Date: 05/29/22 96 Hour Hold Ending Time: 20:42 Attestations NPU Medical Necessity Statement*: Inpatient hospitalization is medically necessary and deemed to be the clinically appropriate decision at this time. We will initiate medications and make changes as indicated. Her likely length of stay is 4-6 days. Coding Level of Care Code Acute Code for [facility] Fwd Diagnoses Bipolar affective, manic, unspec F31.10 Psychotic disorder F29
[2022-05-30] MEDS: docusate sodium 100 mg Capsule PO (20:16)
[2022-05-30] MEDS: diphenhydrAMINE 50 mg Capsule PO (20:16)
[2022-05-30] MEDS: OLANZapine 10 mg ODT PO (20:16)
[2022-05-30] MEDS: phenyleph-mineral oil-petrolat Oint 28 gm 1 APPLIC TOPICAL (21:11)
[2022-05-30 22:00] VITALS: BP 128/93; PULSE 125; RESP 18; TEMP 36.8; O2SAT 96
[2022-05-31] MEDS: diphenhydrAMINE 50 mg Capsule PO ×3 (04:44→16:53)
[2022-05-31 06:00] VITALS: BP 121/83; PULSE 100; RESP 18; TEMP 36.9; O2SAT 97
[2022-05-31] MEDS: loratadine 10 mg Tablet PO (08:15)
--- NOTE | 2022-05-31 08:16 | PC.NURSE ---
PRN BENADRYL 50 MG GIVEN PO PER PT C/O ITCHING ON LEGS
--- NOTE | 2022-05-31 08:54 | PC.NURSE ---
PT DENIES SI/HI AND AVH AT THIS TIME. PT BEHAVIOR HAS IMPROVED BUT REMAINS IMPULSIVE AT TIMES. PT IS ABLE TO BE DIRECTED. PT WAS EDUCATED ON LETTING STAFF KNOW WHEN SHE IS FEELING AGITATED. BILATERAL UPPER LEGS WERE OBSERVED TO HAVE MILD REDNESS WITH A FEW RAISED AREAS. PT WAS GIVEN BENADRYL PRN AND DAILY CLARITIN BOTH WERE EFFECTIVE.
--- NOTE | 2022-05-31 11:36 | PC.NURSE ---
21 day hold paper work reviewed and order placed for 21 day to be up on 06/21/22 at 1500.
[2022-05-31] MEDS: blistex lip oint 7 gm Tube 1 APPLIC TOPICAL (11:40)
[2022-05-31] MEDS: nicotine 2 mg Gum BUCCAL ×2 (12:05→18:36)
[2022-05-31 14:00] VITALS: BP 116/77; PULSE 97; RESP 18; TEMP 36.8; O2SAT 96
--- NOTE | 2022-05-31 16:54 | PC.NURSE ---
PT REQUEST BENADRYL FOR RASH AND ITCHING ON UPPER BILATERAL EXTREMITIES. BENADRYL 50 MG WAS GIVEN PO ORDERED.
--- NOTE | 2022-05-31 17:34 | P.NPUPN_ITS ---
Subjective NPU Subjective: Patient is a 47-year-old white female admitted with acute psychosis and rosas. The patient had not required as needed medications as of today. She had taken her sublingual Zyprexa 10 mg orally as prescribed. She had stated that she would take her medications until she was better and would then go home. She had been continuously intrusive but more redirectable with less agitation noted. There have been no verbal or physical threats noted today. She continued to have evidence of overvalued ideas but did not appear as hostile today. She had continued to have intermittent sleep disruption reported per staff. Mental Status Exam 2 MSE Comments: The patient appears older than her stated age. She is a thin white female with poor hygiene and normal gait. There was no evidence of any abnormal involuntary motor movements tics or tremors appreciated. She did appear to have increased psychomotor activity. She remained intrusive but was more redirectable today. Her speech had increase in push and but normal in volume and prosody. Her mood was described as okay. Her affect was labile and mood incongruent.. her thought process was tangential and but less expansive today. Her thought content showed no evidence of active homicidal or suicidal ideation. There appeared to be some overvalued ideas, paranoia. There was continued ideas of reference. There were no clear overt bizarre delusions noted though. Her insight was poor. Her judgment is poor. Her impulse control remained limited. She was alert and oriented to person and place. Vitals/I&O/Wt Last Vital Signs Temp 98.3 F 05/31/22 14:00 Pulse 97 05/31/22 14:00 Resp 18 05/31/22 14:00 BP 116/77 05/31/22 14:00 Pulse Ox 96 05/31/22 14:00 O2 Del Method Room Air 05/31/22 06:00 Data NPU 05/23/22 18:25 05/23/22 18:25 A&P Assessment and plan (1) Bipolar affective, manic, unspec: (2) Psychotic disorder: Plan The patient is a 47-year-old white female who presents acutely psychotic with unknown psychiatric history. She remains hospitalized on an involuntary basis at this time. She will continue to require acute inpatient hospitalization. 1.? Engage patient in individual ,milieu, and group therapy 2. Discontinue Invega. Zyprexa zydus 15mg at night, Haldol 10mg IM given if refused. Patient on 21 day hold. 3. TO-15 minute checks on the unit 4. Will attempt to gather collateral information. Involuntary Hold Information 96 Hour Hold: 96 Hour Involuntary Admission: Yes 96 Hour Hold Ending Date: 05/29/22 96 Hour Hold Ending Time: 20:42 Attestations NPU Medical Necessity Statement*: Inpatient hospitalization is medically necessary and deemed to be the clinically appropriate decision at this time. We will initiate medications and make changes as indicated. Her likely length of stay is 4-6 days. Coding Level of Care Code Acute Code for [facility] Fwd Diagnoses Bipolar affective, manic, unspec F31.10 Psychotic disorder F29
[2022-05-31] MEDS: OLANZapine 10 mg ODT PO (20:25)
[2022-05-31] MEDS: docusate sodium 100 mg Capsule PO (21:58)
[2022-05-31 22:00] VITALS: BP 131/89; PULSE 114; RESP 16; TEMP 36.8; O2SAT 97
[2022-06-01 05:54] VITALS: BP 138/93; PULSE 88; RESP 16; TEMP 37.2; O2SAT 96
[2022-06-01] MEDS: loratadine 10 mg Tablet PO (08:45)
[2022-06-01] MEDS: nicotine 2 mg Gum BUCCAL ×3 (09:38→19:10)
[2022-06-01] MEDS: diphenhydrAMINE 50 mg Capsule PO (10:28)
[2022-06-01] MEDS: ondansetron 4 MG Tablet PO ×2 (13:41→18:10)
[2022-06-01 14:00] VITALS: BP 132/91; PULSE 83; RESP 18; TEMP 36.6; O2SAT 98
[2022-06-01] MEDS: ondansetron 2 mg/ML SDV 2 mL 4 MG IM ×2 (14:27→18:36)
--- NOTE | 2022-06-01 15:44 | P.NPUPN_ITS ---
Subjective NPU Subjective: Patient is a 47-year-old white female admitted with acute psychosis and rosas. Patient had been more compliant on the milieu. She had stated that she had slept throughout the night on the 15 mg of Zyprexa. She had reported being goal oriented and stated that she was feeling ready to go home soon. She had minimized her past problems and stated that she did not have bipolar disorder. Despite some information provided by family stating that she had been hospitalized before she had minimized this. She again at been unable to reports any causes that had led to her hospitalization during this stay. She had been more redirectable and did not require any medication just as needed for a ggression per staff. The patient had stated that she did not feel that her thoughts were moving as fast today. Mental Status Exam MSE Comments: The patient appears older than her stated age. She is a thin white female with poor hygiene and normal gait. There was no evidence of any abnormal involuntary motor movements tics or tremors appreciated. She continued to have increased psychomotor activity as she was seen pacing the [place]. She was less intrusive and more redirectable today. Her speech had increase in push and but normal in volume and prosody. Her mood was described as all right. Her affect was somewhat subdued today. Her thought process was circumstantial at times but more linear and logical. Her thought content showed no evidence of active homicidal or suicidal ideation. There appeared to be some overvalued ideas, paranoia. There was continued ideas of reference with some evidence of it was illusory correlation and magical thinking. Her insight was poor. Her judgment is poor. Her impulse control remained limited. She was alert and oriented to person and place and time.. Vitals/I&O/Wt Last Vital Signs Temp 99.0 F 06/01/22 05:54 Pulse 88 06/01/22 05:54 Resp 16 06/01/22 05:54 BP 138/93 06/01/22 05:54 Pulse Ox 96 06/01/22 05:54 O2 Del Method Room Air 06/01/22 05:54 Data NPU 05/23/22 18:25 05/23/22 18:25 A&P Assessment and plan (1) Bipolar affective, manic, unspec: (2) Psychotic disorder: Plan The patient is a 47-year-old white female who presents acutely psychotic with un known psychiatric history. She remains hospitalized on an involuntary basis at this time. She will continue to require acute inpatient hospitalization. 1.? Engage patient in individual ,milieu, and group therapy 2. Zyprexa zydus 15mg at night, Haldol 10mg IM given if refused. Patient on 21 day hold. 3. TO-15 minute checks on the unit 4. Will attempt to gather collateral information. Involuntary Hold Information 96 Hour Hold: 96 Hour Involuntary Admission: Yes 96 Hour Hold Ending Date: 05/29/22 96 Hour Hold Ending Time: 20:42 Attestations NPU Medical Necessity Statement*: Inpatient hospitalization is medically necessary and deemed to be the clinically appropriate decision at this time. We will initiate medications and make changes as indicated. Her likely length of stay is 5-7 days. Coding Level of Care Code Acute Code for g Fwd Diagnoses Bipolar affective, manic, unspec F31.10 Psychotic disorder F29
[2022-06-01] MEDS: promethazine 25 mg/mL SDV 1 mL IM ×2 (20:26→23:28)
[2022-06-01] MEDS: OLANZapine 10 mg ODT PO (20:51)
--- NOTE | 2022-06-01 21:35 | PC.NURSE ---
Patient c/o N/V throughout day shift & C/O same this evening. She has already had zofran PO x2 & Zofran IM x2, Dr Colbert gave permission for Phenegren IM given.
[2022-06-01 22:00] VITALS: BP 159/96; PULSE 86; RESP 16; TEMP 36.6; O2SAT 97
[2022-06-01] MEDS: loperamide 2 mg Capsule PO (23:23)
[2022-06-01] MEDS: magnesium hydroxide 30 mL UDC PO (23:26)
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
--- NOTE | 2022-06-02 | PC.NURSE ---
Patient still insists that she is dehydrated & insists on the MD being called. MD notified, suggested hospitalist be called. This RN spoke to hospitalist, but he was in the middle of an emergency & will call back. In the meantime, the patient states she is feeling some better .
[2022-06-02 06:00] VITALS: RESP 18
[2022-06-02] MEDS: loratadine 10 mg Tablet PO (09:13)
[2022-06-02] MEDS: nicotine 2 mg Gum BUCCAL (09:14)
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
[2022-06-02] MEDS: hyDROXYzine 25 mg Capsule 50 MG PO (13:37)
[2022-06-02 14:00] VITALS: BP 145/89; PULSE 89; RESP 18; TEMP 37.1; O2SAT 97
[2022-06-02] MEDS: prochlorperazine 10 mg/2 mL Inj IM (16:28)
[2022-06-02] MEDS: acetaminophen 325 mg Tablet 650 MG PO (18:55)
--- NOTE | 2022-06-02 18:59 | PC.NURSE ---
Administered tylenol 650mg PO to pt with a temp of 100.0.
[2022-06-02] MEDS: OLANZapine 10 mg ODT PO (20:04)
[2022-06-02 22:00] VITALS: BP 139/86; PULSE 88; RESP 16; TEMP 37.4; O2SAT 97
[2022-06-03 06:00] VITALS: BP 158/105; PULSE 93; RESP 18; TEMP 36.8; O2SAT 97
[2022-06-03] MEDS: loratadine 10 mg Tablet PO (08:32)
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
[2022-06-03] MEDS: nicotine 2 mg Gum BUCCAL (11:17)
[2022-06-03 14:00] VITALS: BP 120/86; PULSE 93; RESP 18; TEMP 36.8; O2SAT 97
--- NOTE | 2022-06-03 18:37 | NPU.GN ---
[facility] Unit Group Topic: Painting for relaxation General Mood of Group- patient participated in group by painting a landscape. Patient discussed her family and painting
[2022-06-03] MEDS: OLANZapine 10 mg ODT PO (20:50)
[2022-06-03 22:00] VITALS: BP 142/91; PULSE 91; RESP 16; TEMP 36.9; O2SAT 97
[2022-06-04] MEDS: artificial tears Op Soln 15 mL Btl 1 DROP EYE-BOTH (05:32)
[2022-06-04 06:00] VITALS: BP 151/92; PULSE 92; RESP 18; TEMP 36.6; O2SAT 99
[2022-06-04] MEDS: loratadine 10 mg Tablet PO (07:52)
[2022-06-04] MEDS: nicotine 2 mg Gum BUCCAL ×2 (09:12→14:38)
--- NOTE | 2022-06-04 10:55 | W.PM.NPUPNS ---
Subjective NPU Subjective: Patient presented today with continued flight of ideas. When we met in her room she had papers all over her bed with writings on various topics. She explained to this publications writer that she was to give us maybe 2 more days and then she needed to leave. She then went on a rant about various topics including ([facility] [place]) [facility] standing for on my casket. She spoke about various different things that had no meaning that she gave her own special meaning to him. We talked about her recent increase the Zyprexa 15 mg p.o. nightly and the possible need for mood stabilizer and she talked about being started on lithium here and it causing all kinds of problems. Mental Status Exam MSE Comments: This is a well-nourished well-developed white female in the and eye contact with hospital scrubs on. No abnormal movements except for mild psychomotor retardation. Cooperative with exam and mild distress. Speech was slightly increased rate normal volume and slightly pressured. Mood described as good affect somewhat guarded and more irritable. Thought process linear with some trouble telling a coherent story without jumping from different story lines. Thought content: Patient denied suicidal or homicidal ideation, there were no delusions reported but some paranoia and guardedness as well as persecutory delusions noted, she denied auditory or visual hallucinations. Attention and concentration were somewhat limited and memory was mostly reliable but none were formally tested. She is alert and oriented x3. Insight and judgment are limited impulse control is impaired. Vitals/I&O/Wt Last Vital Signs Temp 97.8 F 06/04/22 06:00 Pulse 92 06/04/22 06:00 Resp 18 06/04/22 06:00 BP 151/92 06/04/22 06:00 Pulse Ox 99 06/04/22 06:00 O2 Del Method Room Air 06/03/22 14:00 Weight last 48 hrs Weight 67.495 kg Data NPU 05/23/22 18:25 05/23/22 18:25 A&P Assessment and plan (1) Bipolar affective, manic, unspec: (2) Psychotic disorder: Plan The patient is a 47-year-old white female who presents acutely psychotic with unknown psychiatric history. She remains hospitalized on an involuntary basis at this time. She will continue to require acute inpatient hospitalization. 1.? Engage patient in individual ,milieu, and group therapy 2. Zyprexa zydus 15mg at night, Haldol 10mg IM given if refused. Patient on 21 day hold. 3. TO-15 minute checks on the unit 4. Will attempt to gather collateral information. Involuntary Hold Information 96 Hour Hold: 96 Hour Involuntary Admission: Yes 96 Hour Hold Ending Date: 05/29/22 96 Hour Hold Ending Time: 20:42 Attestations NPU Medical Necessity Statement*: Inpatient hospitalization is medically necessary and deemed to be the clinically appropriate decision at this time. We will initiate medications and make changes as indicated. Her likely length of stay is 4-6 days. Coding Level of Care Code Acute Code for g Fwd Diagnoses Bipolar affective, manic, unspec F31.10 Psychotic disorder F29
[2022-06-04 14:00] VITALS: BP 161/98; PULSE 80; RESP 20; TEMP 36.8; O2SAT 97
--- NOTE | 2022-06-04 14:38 | PC.NURSE ---
disruptive behavior pt called [place] [employer] department, they called stating patient had called them, telling them she was being held here against her will, police informed by staff that patient was here under a 21 day hold currently, patient had requested that police come pick her up here now. police told staff they would appreciate it if patient didn't contact them again, this staff member attempted to educate patient about improper phone usage, how she was not allowed to call 911 or the police department, patient becoming verbally aggressive with staff, threatening me that I will find you when I get discharged from here, year maybe I'll come visit you at your home! I don't know where you live but I'll find out. staff attempting to redirect patient that her behavior was clearly inappropriate, she cont to be aggressive with this nurse, saying you'll go home eventually & someone else will turn on the phone for me so I can call the police it's my right! staff informed that we would be passing on her comments & behaviors to next shift so staff could monitor phones/behavior appropriately, pt then began cussing & walked back to her room
[2022-06-04] MEDS: blistex lip oint 7 gm Tube 1 APPLIC TOPICAL (16:23)
[2022-06-04] MEDS: phenyleph-mineral oil-petrolat Oint 28 gm 1 APPLIC TOPICAL (16:23)
[2022-06-04] MEDS: hydrocortisone 2.5% cream 28 gm 1 APPLIC TOPICAL (16:24)
--- NOTE | 2022-06-04 17:02 | PC.NURSE ---
PT CONT TO BE VERBALLY AGGRESSIVE TOWARDS THIS STAFF, SAYING I WAS THREATENING HER WITH THE PHONE ALSO MADE COMMENTS LIKE YOU'VE TOLD ME TO SHUT UP, AND GET SOME EAR PLUGS THIS STAFF MEMBER HAS NOT SAID ANYTHING ABOUT EAR PLUGS TO HER OR ANY OTHER PATIENT, PATIENT CONT TO TARGET THIS NURSE, MAKING DEROGATORY COMMENTS EVERY TIME SHE PASSES BY THE NURSES STATION, SAYING THINGS LIKE OH THEY SAID YOU WERE SCARED OF ME & WENT HOME SO THEY CALLED THAT OTHER BIG BITCH IN.
--- NOTE | 2022-06-04 18:18 | PC.NURSE ---
Pt has been badgering the nursing staff all day. Pt has been making rude and crude comments that include fowl language. Pt has stated that nurses should have a vasectomy so that they don't reproduce anymore. Pt has been trying to find out all staffs last names, and trying to figure out where staff lives. Pt also talking about getting employees kicked out of their homes. Pt called 911, the [facility], ICU department.
--- NOTE | 2022-06-04 18:38 | PC.NURSE ---
CONT TO VERBALLY ATTACK STAFF, CALLING STAFF A CUNT OVER AND OVER
[2022-06-04] MEDS: docusate sodium 100 mg Capsule PO (19:57)
[2022-06-04] MEDS: OLANZapine 10 mg ODT 15 MG PO (19:57)
[2022-06-04 20:56] VITALS: BP 150/92; PULSE 87; RESP 18; TEMP 37.5; O2SAT 98
[2022-06-05 06:00] VITALS: BP 124/83; PULSE 68; RESP 18; TEMP 37; O2SAT 98
[2022-06-05] MEDS: loratadine 10 mg Tablet PO (07:36)
[2022-06-05] MEDS: nicotine 2 mg Gum BUCCAL (08:08)
[2022-06-05 14:00] VITALS: BP 156/90; PULSE 87; RESP 16; TEMP 36.6; O2SAT 98
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
[2022-06-05] MEDS: hyDROXYzine 25 mg Capsule 50 MG PO (14:43)
[2022-06-05] MEDS: OLANZapine 5 mg ODT PO (16:11)
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
[2022-06-05] MEDS: haloperidol inj 5 mg/mL INJ 1 mL IM (16:24)
[2022-06-05] MEDS: LORazepam 2 mg/mL INJ 1 mL IM (16:24)
[2022-06-05] MEDS: diphenhydrAMINE 50 mg/mL SDV 1mL IM (16:24)
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
[2022-06-05 20:37] VITALS: RESP 16
[2022-06-05] MEDS: OLANZapine 10 mg ODT 15 MG PO (20:45)
[2022-06-05 20:46] VITALS: BP 121/84; PULSE 76; RESP 16; TEMP 36.9; O2SAT 98
[2022-06-06 06:00] VITALS: BP 129/81; PULSE 80; RESP 18; TEMP 37; O2SAT 95
[2022-06-06] MEDS: loratadine 10 mg Tablet PO (08:13)
[2022-06-06] MEDS: OLANZapine 5 mg ODT PO (09:33)
[2022-06-06] MEDS: nicotine 2 mg Gum BUCCAL ×2 (09:34→18:20)
[2022-06-06 14:00] VITALS: BP 124/88; PULSE 111; RESP 18; TEMP 36.3; O2SAT 96
[2022-06-06] MEDS: phenyleph-mineral oil-petrolat Oint 28 gm 1 APPLIC TOPICAL (16:14)
--- NOTE | 2022-06-06 17:42 | W.PM.NPUPNS ---
Subjective NPU Subjective: Patient presented today reporting that she is doing better. She seemed less agitated and hyperkinetic. The first day since she has engaged this race and sports book writer she did have a bed full of writings about different thoughts she was having. We discussed her having a as needed of Zyprexa this morning and the risks, benefits and alternatives of giving her a morning dose of Zyprexa versus a conversation about adding a different mood stabilizer and she understood and agreed proceed as is documented in this note. Mental Status Exam MSE Comments: This is a well-nourished well-developed white female in the and eye contact with hospital scrubs on. No abnormal movements except for mild psychomotor agitation. Cooperative with exam in mild distress. Speech was more normal rate and volume and less pressured. Mood described as better, affect congruent and much less irritable. Thought process linear and well organized with less tangentiality. Thought content: Patient denied suicidal or homicidal ideation, there were no delusions reported and much lower signs of paranoia and guardedness as well as persecutory delusions noted, also less signs of grandiosity and overvalued beliefs, she denied auditory or visual hallucinations. Attention and concentration were improving and memory was mostly reliable but none were formally tested. She is alert and oriented x3. Insight, judgment and impulse control are improving. Vitals/I&O/Wt Last Vital Signs Temp 98.0 F 06/06/22 19:52 Pulse 113 H 06/06/22 19:52 Resp 18 06/06/22 19:52 BP 129/72 06/06/22 19:52 Pulse Ox 99 06/06/22 19:52 O2 Del Method Room Air 06/06/22 19:52 Data NPU 05/23/22 18:25 05/23/22 18:25 A&P Assessment and plan (1) Bipolar affective, manic, unspec: (2) Psychotic disorder: Plan The patient is a 47-year-old white female who presents acutely psychotic with unknown psychiatric history. She remains hospitalized on an involuntary basis at this time. She will continue to require acute inpatient hospitalization. 1.? Engage patient in individual ,milieu, and group therapy 2. Zyprexa zydus 15mg at night, Haldol 10mg IM given if refused. Patient on 21 day hold. Add Zyprexa 5 mg p.o. every morning. 3. TO-15 minute checks on the unit Involuntary Hold Information 96 Hour Hold: 96 Hour Involuntary Admission: Yes 96 Hour Hold Ending Date: 05/29/22 96 Hour Hold Ending Time: 20:42 Attestations NPU Medical Necessity Statement*: Inpatient hospitalization is medically necessary and deemed to be the clinically appropriate decision at this time. We will initiate medications and make changes as indicated. Her likely length of stay is 4-6 days. Coding Level of Care Code Acute Code for g Fwd Diagnoses Bipolar affective, manic, unspec F31.10 Psychotic disorder F29
[2022-06-06 19:52] VITALS: BP 129/72; PULSE 113; RESP 18; TEMP 36.7; O2SAT 99
[2022-06-06] MEDS: OLANZapine 10 mg ODT 15 MG PO (20:18)
[2022-06-07 06:00] VITALS: BP 118/87; PULSE 111; RESP 18; TEMP 36.8; O2SAT 98
[2022-06-07] MEDS: OLANZapine 5 mg TABLET PO (10:01)
[2022-06-07] MEDS: loratadine 10 mg Tablet PO (10:01)
[2022-06-07] MEDS: nicotine 2 mg Gum BUCCAL ×2 (10:04→18:20)
[2022-06-07] MEDS: blistex lip oint 7 gm Tube 1 APPLIC TOPICAL (12:17)
[2022-06-07 13:26] VITALS: BP 126/68; PULSE 108; RESP 17; TEMP 36.8; O2SAT 98
--- NOTE | 2022-06-07 17:33 | W.PM.NPUPNS ---
Subjective NPU Subjective: Patient presented today reporting that things were going better. She continues to report feeling calmer with the 5 mg of Zyprexa in the morning. We discussed her plans for discharge and family support. She denied having any racing thoughts or other symptoms consistent with her rosas. Staff reports are of less intrusiveness and more cooperation. She reports she is eating better and reports are that she is sleeping better. Mental Status Exam MSE Comments: This is a well-nourished well-developed white female in the and eye contact with hospital scrubs on. No abnormal movements except for mild psychomotor agitation. Cooperative with exam in no acute distress. Speech was more normal rate and volume and less pressured. Mood described as better, affect congruent and much less irritable. Thought process linear and well organized with less tangentiality. Thought content: Patient denied suicidal or homicidal ideation, there were no delusions reported and much lower signs of paranoia and guardedness as well as persecutory delusions noted, also less signs of grandiosity and overvalued beliefs, she denied auditory or visual hallucinations. Attention and concentration were improving and memory was mostly reliable but none were formally tested. She is alert and oriented x3. Insight, judgment and impulse control are improving. Vitals/I&O/Wt Last Vital Signs Temp 98.2 F 06/07/22 13:26 Pulse 108 H 06/07/22 13:26 Resp 17 06/07/22 13:26 BP 126/68 06/07/22 13:26 Pulse Ox 98 06/07/22 13:26 O2 Del Method Room Air 06/07/22 13:26 Data NPU 05/23/22 18:25 05/23/22 18:25 A&P Assessment and plan (1) Bipolar affective, manic, unspec: (2) Psychotic disorder: Plan The patient is a 47-year-old white female who presents acutely psychotic with unknown psychiatric history. She remains hospitalized on an involuntary basis at this time. She will continue to require acute inpatient hospitalization. 1.? Engage patient in individual ,milieu, and group therapy 2. Zyprexa zydus 15mg at night, Haldol 10mg IM given if refused. Patient on 21 day hold. Added Zyprexa 5 mg p.o. every morning. 3. TO-15 minute checks on the unit Involuntary Hold Information 96 Hour Hold: 96 Hour Involuntary Admission: Yes 96 Hour Hold Ending Date: 05/29/22 96 Hour Hold Ending Time: 20:42 Attestations NPU Medical Necessity Statement*: Inpatient hospitalization is medically necessary and deemed to be the clinically appropriate decision at this time. We will initiate medications and make changes as indicated. Her likely length of stay is 3-5 days. Coding Level of Care Code Acute Code for [facility] Fwd Diagnoses Bipolar affective, manic, unspec F31.10 Psychotic disorder F29
[2022-06-07] MEDS: OLANZapine 10 mg ODT 15 MG PO (20:00)
[2022-06-07] MEDS: phenyleph-mineral oil-petrolat Oint 28 gm 1 APPLIC TOPICAL (20:50)
[2022-06-07 20:56] VITALS: BP 167/97; PULSE 100; RESP 18; TEMP 36.9; O2SAT 99
[2022-06-08] MEDS: acetaminophen 325 mg Tablet 650 MG PO (05:11)
[2022-06-08 05:57] VITALS: BP 100/71; PULSE 118; RESP 18; TEMP 36.9; O2SAT 99
[2022-06-08] MEDS: loratadine 10 mg Tablet PO (08:26)
[2022-06-08] MEDS: OLANZapine 5 mg TABLET PO (08:26)
[2022-06-08] MEDS: phenyleph-mineral oil-petrolat Oint 28 gm 1 APPLIC TOPICAL (11:25)
[2022-06-08] MEDS: nicotine 2 mg Gum BUCCAL (13:42)
[2022-06-08 14:00] VITALS: BP 125/82; PULSE 88; RESP 16; TEMP 36.8; O2SAT 98
--- NOTE | 2022-06-08 14:59 | W.PM.NPUPNS ---
Subjective NPU Subjective: Patient presented today reporting that she is feeling better each day. She did talk to the social work team about her plans and was made aware of our plan to likely discharge in the next 48 hours and she was lobbying for tomorrow being a great day to let her go. No reports of any problems during the day and no indirect signs of rosas in the form of irritability or jason of paper where she is writing out all of her thoughts and ideas. We discussed that tomorrow was a possibility for discharge but our goal is by Sunday. Mental Status Exam MSE Comments: This is a well-nourished well-developed white female in hospital scrubs with adequate grooming and eye contact. No abnormal movements. Cooperative with exam in no acute distress. Speech was more normal rate and volume and less pressured. Mood described as better, affect congruent. Thought process more organized with less tangentiality. Thought content: Patient denied suicidal or homicidal ideation, there were no delusions reported or noted with no clear signs of grandiosity and overvalued beliefs, she denied auditory or visual hallucinations. Attention and concentration were improving and memory was mostly reliable but none were formally tested. She is alert and oriented x3. Insight, judgment and impulse control are improving. Vitals/I&O/Wt Last Vital Signs Temp 98.3 F 06/08/22 14:00 Pulse 88 06/08/22 14:00 Resp 16 06/08/22 14:00 BP 125/82 06/08/22 14:00 Pulse Ox 98 06/08/22 14:00 O2 Del Method Room Air 06/08/22 14:00 Data NPU 05/23/22 18:25 05/23/22 18:25 A&P Assessment and plan (1) Bipolar affective, manic, unspec: (2) Psychotic disorder: Plan The patient is a 47-year-old white female who presents acutely psychotic with unknown psychiatric history. She remains hospitalized on an involuntary basis at this time. She will continue to require acute inpatient hospitalization. 1.? Engage patient in individual ,milieu, and group therapy 2. Zyprexa zydus 15mg at night, Haldol 10mg IM given if refused. Patient on 21 day hold. Added Zyprexa 5 mg p.o. every morning. 3. TO-15 minute checks on the unit 4. Plan for discharge in the next 48 hours. Involuntary Hold Information 96 Hour Hold: 96 Hour Involuntary Admission: Yes 96 Hour Hold Ending Date: 05/29/22 96 Hour Hold Ending Time: 20:42 Attestations NPU Medical Necessity Statement*: Inpatient hospitalization is medically necessary and deemed to be the clinically appropriate decision at this time. We will initiate medications and make changes as indicated. Her likely length of stay is 1-3 days. Coding Level of Care Code Acute Code for g Fwd Diagnoses Bipolar affective, manic, unspec F31.10 Psychotic disorder F29
[2022-06-08 20:11] VITALS: BP 129/85; PULSE 100; RESP 18; TEMP 37.1; O2SAT 98
[2022-06-08] MEDS: OLANZapine 10 mg ODT 15 MG PO (20:21)
[2022-06-09 06:00] VITALS: BP 117/78; PULSE 99; RESP 18; TEMP 37; O2SAT 100
[2022-06-09] MEDS: phenyleph-mineral oil-petrolat Oint 28 gm 1 APPLIC TOPICAL (06:47)
[2022-06-09] MEDS: loratadine 10 mg Tablet PO (08:35)
[2022-06-09] MEDS: nicotine 2 mg Gum BUCCAL (08:35)
[2022-06-09] MEDS: OLANZapine 5 mg TABLET PO (08:35)
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
[2022-06-09 11:21] VITALS: BP 117/78; PULSE 99; RESP 18; TEMP 37; O2SAT 100
--- NOTE | 2022-06-09 12:26 | PC.NURSE ---
written discharge instruction discussed with patient by BHARGAVI Baker instructions left with patient. pt stated understanding and compliance.
== END 2022-06-09 12:26 | disposition home or self-care (01) | DRG 885 ==
LOC: ER 20:42 → NP 21:55
PROVIDERS: Admitting Provider Psychiatry & Neurology Psychiatry; Emergency Provider Emergency Medicine; PCP Social Worker Clinical; Visit Provider Psychiatry & Neurology Psychiatry
DX: F31.9 Bipolar disorder, unspecified (principal); F12.90 Cannabis use, unspecified, uncomplicated
CPT/HCPCS: 36415; 80053; 80306; 80307; 81001; 81025; 84439; 84443; 85025; 96372; 97150; 97165; 99285; J0780; J1200; J1630; J2060; J2405; J2550; J3486; Q0162; Q0163

== ENCOUNTER 2022-12-14 11:02 | Emergency (ER) | payer MEDICAID, SELFPAY ==
[2022-12-14 11:04] VITALS: BP 153/102; PULSE 95; RESP 18; TEMP 37.1; O2SAT 99
--- NOTE | 2022-12-14 11:13 | PC.PHAR ---
MEDICATIONS ENTERED ARE WHAT EXT SHOWS LAST FILLED ON 06/09/22 30D/S WITH ONE REFILL AT [facility] STATES NOT FILLED SINCE 2019 FOR THE PT
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
--- NOTE | 2022-12-14 11:17 | ECG_ITS ---
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 Measurements Intervals [place] Rate: 62 P: 73 PA: 161 QRS: 61 QRSD: 77 T: 53 QT: 384 QTc: 392 Interpretive Statements SINUS RHYTHM WITH SINUS ARRHYTHMIA No previous ECG available for comparison Electronically Signed On 12-14-2022 12:08:32 CDT by Mushtaq Villatoro M.D. [id number]
[2022-12-14 11:38] LABS: HCG Qualitative Urine. Negative (Negative)
[2022-12-14 11:42] LABS: Amphetamines Screen Urine Negative (Negative); Barbiturates Screen Urine Negative (Negative); Benzodiazepines Screen Urine Negative (Negative); Cocaine Screen Urine Negative (Negative); Opiate Screen Urine Negative (Negative); PCP Screen Urine Negative (Negative); THC Screen Urine Positive (Negative)
[2022-12-14 11:47] LABS: Add Urine Microscopic? YES; Bilirubin Urine Neg (Negative); Blood Urine 2+ (Negative); Glucose Urine UA Norm (Normal); Ketones Urine Negative (Negative); Leukocyte Esterase Urine 2+ (Negative); Nitrate Urine Negative (Negative); Protein Urine Trace (Negative); Specific Gravity, Urine 1.025 (1.005-1.030); Urine Appearance SL Hazy (CLEAR); Urine Color Yellow (Yellow); Urobilinogen Urine 1 mg/dL (Negative); pH Urine 5 (5-7)
[2022-12-14 11:52] LABS: Bacteria Urine TRACE /hpf; Calcium Oxalate Crystals Urine 0-4 /hpf; RBC Urine 0-4 /hpf (0-2); Squamous Epithelial Cell Urine 0-4 /hpf (0-5); WBC Urine 0-4 /hpf (0-5)
[2022-12-14 11:53] LABS: Add Urine Culture? No
[2022-12-14 12:11] LABS: Basophils # 0.1 10^3/uL (0.0-0.1); Basophils % 0.8 %; Eosinophils # 0.1 10^3/uL (0.0-0.8); Eosinophils % 0.8 %; Hematocrit 45.4 % (36-47); Lymphocytes # 2.4 10^3/uL (0.8-4.8); Lymphocytes % 24.5 %; Mean Corpuscular HGB Conc 33.3 g/dL (30-55); Mean Corpuscular Hemoglobin 32.4 pg (27-33); Mean Corpuscular Volume 97.4 fl (85-98); Mean Platelet Volume 9.2 fL (7.4-10.4); Monocytes # 0.4 10^3/uL (0.2-0.9); Monocytes % 4.6 %; Neutrophils # 6.58 10^3/uL (1.8-7.7); Neutrophils % 68.8 %; Nucleated Red Blood Cells % 0 %; Platelet Count 317 10^3/cmm (157-399); Red Blood Count 4.66 10^6/uL (3.85-5.65); Red Cell Distribution Width 13.3 % (12.1-15.1); White Blood Count 9.58 10^3/uL (3.29-11.43)
--- NOTE | 2022-12-14 12:26 | PC.NURSE ---
This nurse went to check on pt. When asked how she is doing, pt jumped out of the bed and tried to flee, became combative with staff when told she can not leave. Jahaira RN, Raul RN, Rosalba RN, Jalyn PEDERSON, Candice RN, Dr Dc, Dr Hernandez, Beulah Johnson RN, Marli RN, Candelaria manager military had to physically restrain pt and place in restraint bed. Patient is now in a restraint bed, medications given 1mg ativan and 10mg geodon. Patient has 1:1 sitter and connected to vital signs monitor for monitoring.
[2022-12-14 12:29] LABS: Alanine Aminotransferase 13 U/L (0-33); Albumin Level 4.3 g/dL (3.5-5.2); Alkaline Phosphatase 92 U/L (35-105); Anion Gap 13.4 (5-19); Aspartate Amino Transferase 16 U/L (0-32); Blood Urea Nitrogen 11 mg/dL (6-20); Calcium 9.8 mg/dL (8.5-10.5); Carbon Dioxide 24 mmol/L (22-29); Chloride 105 mmol/L (98-107); Globulin 2.8 g/dL (1.3-4.6); Glomerular Filtration Rate 106.7 mL/min (90-130); Glucose 113 mg/dL (65-115); Osmolality Calculated 286 mOsm/kg (285-295); Potassium 4.4 mmol/L (3.5-5.1); Salicylate < 0.3 mg/dL (3-10); Sodium 138 mmol/L (136-145); Total Bilirubin 0.4 mg/dL (0.15-1.2); Total Protein 7.1 g/dL (6.6-8.7)
[2022-12-14 12:30] LABS: Acetaminophen < 5.0 ug/mL (10-30); Alcohol Level < 10 mg/dL (0-10)
[2022-12-14 12:34] VITALS: BP 130/89; PULSE 89; RESP 16; O2SAT 97
[2022-12-14] MEDS: ziprasidone 20 mg/mL SDV 10 MG IM ×2 (12:35→12:55)
[2022-12-14] MEDS: LORazepam 2 mg/mL INJ 1 mL IM ×2 (12:36→21:06)
[2022-12-14] MEDS: haloperidol inj 5 mg/mL INJ 1 mL IM (12:55)
[2022-12-14 13:00] VITALS: BP 128/83; PULSE 80; RESP 16; O2SAT 97
[2022-12-14 14:45] VITALS: BP 92/51; PULSE 77; RESP 16; O2SAT 96
[2022-12-14] MEDS: haloperidol inj 5 mg/mL INJ 1 mL 10 MG IM (21:06)
[2022-12-14] MEDS: water for injection-sterile 10 ML (21:36)
[2022-12-14] MEDS: ziprasidone 20 mg/mL SDV 30 MG IM (21:36)
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
--- NOTE | 2022-12-14 23:38 | PC.NURSE ---
Patient 96 hour Involuntary Hold Rights has been read to patient and a copy of the same has been given to her. Child Life Specialist Isidoro Traylor was present at bedside.
[2022-12-15 04:00] VITALS: PULSE 84; RESP 16; O2SAT 93
[2022-12-15 10:53] LABS: SARS Covid-2 Antigen negative (Negative)
[2022-12-15 10:54] VITALS: BP 159/91; PULSE 99; RESP 16; O2SAT 97
[2022-12-15 14:44] VITALS: BP 134/80; PULSE 77; RESP 16; O2SAT 97
--- NOTE | 2022-12-15 15:04 | PC.NURSE ---
reports called to rosita mcneal in [place]
== END 2022-12-15 15:46 ==
PROVIDERS: Family Medicine; Emergency Provider Internal Medicine; PCP Social Worker Clinical
DX: F23 Brief psychotic disorder (principal); Z11.52 Encounter for screening for COVID-19
CPT/HCPCS: 36415; 80053; 80306; 80307; 81001; 81025; 85025; 87426; 93005; 96372; 99285; J1630; J2060; J3486

== ENCOUNTER 2023-09-07 14:04 | Inpatient (IN) | payer SELFPAY ==
[2023-09-07 14:05] VITALS: BP 119/80; PULSE 89; RESP 16; TEMP 36.7; O2SAT 98; BMI 23.5
--- NOTE | 2023-09-07 14:24 | ECG_ITS ---
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 Measurements Intervals [place] Rate: 80 P: 62 AR: 160 QRS: 37 QRSD: 74 T: 45 QT: 375 QTc: 434 Interpretive Statements SINUS RHYTHM WITH SINUS ARRHYTHMIA Compared to ECG 12/14/2022 11:35:23 No significant changes Electronically Signed On 09-07-2023 19:57:47 CDT by Elias Huerta M.D. [id number]
[2023-09-07 14:28] LABS: Basophils # 0.1 10^3/uL (0.0-0.1); Basophils % 0.7 %; Eosinophils # 0.3 10^3/uL (0.0-0.8); Eosinophils % 2.9 %; Hematocrit 44.4 % (36-47); Lymphocytes % 26.1 %; Mean Corpuscular HGB Conc 32.9 g/dL (30-55); Mean Corpuscular Hemoglobin 31.4 pg (27-33); Mean Corpuscular Volume 95.5 fl (85-98); Monocytes # 0.6 10^3/uL (0.2-0.9); Monocytes % 5.1 %; Neutrophils # 7.34 10^3/uL (1.8-7.7); Neutrophils % 64.8 %; Nucleated Red Blood Cells % 0 %; Platelet Count 328 10^3/cmm (157-399); Red Blood Count 4.65 10^6/uL (3.85-5.65); Red Cell Distribution Width 13.4 % (12.1-15.1); White Blood Count 11.32 10^3/uL (3.29-11.43)
--- NOTE | 2023-09-07 14:33 | PC.PHAR ---
NO NEW MEDICATIONS SINCE 06/09/22 FOUND ON RECORD
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
[2023-09-07 14:52] LABS: Alanine Aminotransferase 8 U/L (0-33); Alkaline Phosphatase 103 U/L (35-105); Anion Gap 14.6 (5-19); Aspartate Amino Transferase 15 U/L (0-32); Blood Urea Nitrogen 14 mg/dL (6-20); Calcium 8.9 mg/dL (8.5-10.5); Carbon Dioxide 25 mmol/L (22-29); Chloride 107 mmol/L (98-107); Creatinine Clr Calc Pharmacy 98.4917; Globulin 2.8 g/dL (1.3-4.6); Glomerular Filtration Rate 88.9 mL/min (90-130); Glucose 113 mg/dL (65-115); Osmolality Calculated 295 mOsm/kg (285-295); Potassium 4.6 mmol/L (3.5-5.1); Sodium 142 mmol/L (136-145); Thyroid Stimulating Hormone 3.72 uIU/mL (0.27-4.20); Total Bilirubin 0.2 mg/dL (0.15-1.2); Total Protein 6.8 g/dL (6.6-8.7)
[2023-09-07] MEDS: LORazepam 2 mg/mL INJ 1 mL IM (14:53)
[2023-09-07] MEDS: ziprasidone 20 mg/mL SDV IM (14:56)
[2023-09-07] MEDS: water for injection-sterile 10 ML 2 ML (14:56)
--- NOTE | 2023-09-07 15:00 | PC.NURSE ---
96 hr rights reviewed with patient @1500 with assistance of [facility] security officers Zheng and Jalen. Education attempted to be reviewed with patient, but patient did not verbalize understanding of information. Patient continues to escalate in behavior during 96 hr review process was being attempted. Patient needed to be redirected multiple times, and at one point tried to push her way through [facility] security officers so she could leave out the doors of ER. Patient was given medications by ER staff in attempts to calm her down as she was becoming physically aggressive with staff. Patient copy was left @bedside with patient for later review.
[2023-09-07 15:04] LABS: Acetaminophen < 5.0 ug/mL (10-30); Alcohol Level < 10 mg/dL (0-10); Salicylate < 0.3 mg/dL (3-10)
[2023-09-07 15:57] LABS: HCG Qualitative Urine. Negative (Negative)
[2023-09-07 16:07] LABS: Bacteria Urine 1+ /hpf; Bilirubin Urine Neg (Negative); Blood Urine 3+ (Negative); Glucose Urine UA Norm (Normal); Ketones Urine Negative (Negative); Leukocyte Esterase Urine Trace (Negative); Nitrate Urine Negative (Negative); Protein Urine Neg (Negative); RBC Urine 0-4 /hpf (0-2); Squamous Epithelial Cell Urine 25-40 /hpf (0-5); Urine Appearance Clear (CLEAR); Urine Color Yellow (Yellow); Urobilinogen Urine 1 mg/dL (Negative); pH Urine 7 (5-7)
[2023-09-07 16:14] VITALS: BP 124/82; PULSE 63; RESP 20; TEMP 37; O2SAT 98
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
[2023-09-07 16:35] LABS: Amphetamines Screen Urine Negative (Negative); Barbiturates Screen Urine Negative (Negative); Benzodiazepines Screen Urine Negative (Negative); Cocaine Screen Urine Negative (Negative); Opiate Screen Urine Negative (Negative); PCP Screen Urine Negative (Negative); THC Screen Urine Positive (Negative)
[2023-09-07 21:28] VITALS: RESP 15
--- NOTE | 2023-09-07 22:14 | PC.NURSE ---
Diarrhea: Multiple episodes of diarrhea noted, requiring change of clothes and mopping floor. Pt refused Imodium @1208.
--- NOTE | 2023-09-07 23:08 | PC.NURSE ---
Agitation/Restless: Pt is pacing the hallway. Told nurses, I'm going to punch that little fucker in the teeth and People in hell want ice water . Pt is also asking questions like: what year is it , who's the president . Pt also expressed she was worried about her kids and who her dad was. This RN offered medications for sleep and anxiety- pt refused.
[2023-09-08] MEDS: LORazepam 2 mg/mL INJ 1 mL IM (00:45)
[2023-09-08] MEDS: diphenhydrAMINE 50 mg/mL SDV 1mL IM (00:46)
[2023-09-08] MEDS: haloperidol inj 5 mg/mL INJ 1 mL IM (00:46)
--- NOTE | 2023-09-08 01:02 | PC.NURSE ---
Isolation Room: Severe agitation/aggression. Pt is not responsive to verbal deescalation. Pt screaming at other patients/staff, hitting brito/doors with closed fist, open-hand hitting glass windows, attempting to enter other pts rooms. Security (Mario) on unit. Vehicle Damage Appraiser (Simona) on unit. Pt was directed to her room by staff and voluntarily agreed to IM medications, see MAR for time administered. Shortly after pt resumed pacing the [facility], screaming, making verbal threats- I'm going to punch your teeth in , I'll make you regret this , I'm going to burn this whole place down . Pt threw TV remote in dayroom. Pt was escorted to isolation room via 6 staff members. Entered isolation room @0055. 1:1 staff initiated @0055, see paper chart for 15min safety/behavior checks.
--- NOTE | 2023-09-08 01:44 | PC.NURSE ---
Patient Behavior at 0130 checked on patient while in seclusion. Reviewed with patient that when she calms down and agrees to be cooperative that she could be removed from the room. Viewed patients hands and wnl. Offered patient water and she declined. Patient continued to make aggressive comments to the affect that she would kill everyone of us and burn the hospital down.
--- NOTE | 2023-09-08 01:50 | PC.NURSE ---
Patient behavior at 0150 patient was asleep on the mat in the restraint room so door was opened and seclusion ended and sitter removed.
--- NOTE | 2023-09-08 04:44 | PC.NURSE ---
Behavioral issues At approximately 2100 pt woke up and became agitated towards staff members for not allowing her to have a cigarette. Between 2100 and 0000 pt walked up and down pt hallway several times asking questions like who is the president or can you guys do a DNA test so i can figure out who my dad is? Every once in awhile pt would yell profanities at staff or to herself in her room. This nurse and other nursing staff tried to verbally deescalate pt several times. During those times pt would continue to make statements like im gonna burn this whole fucking place to the ground. and Im gonna kill all you motherfuckers. Nursing staff made serval attempts to get pt to take oral medications to help her calm down in which she would reply no im not taking anything from [facility] At 0006 housekeeping assistant and security were notified of pts escalating behaviors and requested their assistance in giving pt IM medications. shuttle preparation supervisor requested additional male staff from others floors to assist as well. When nursing staff asked pt if she would take the IM medications willingly she stated that she did not need any medications and that she would remain calm and quiet. Nursing staff left pt room and pt immediately started yelling. Pt took Im medications willingly at 0040. Ativan 2mg, Benadryl 50mg and Haldol 5mg were administered to the pts left deltoid by other RN. After medications were administered all nursing staff returned to nurses station and pt immediately came out into the hallway and started banging on doors and nurses station windows and yelling profanities at other pts asking them do any of you have a fucking cigarette . Nursing staff responded and walked with pt down to the dayroom asking her multiple times to head towards her room with the intent of using seclusion to deescalate the pt. In the dayroom pt began to get increasingly agitated and threw the TV remote at the wall and told nursing staff to get the hell away from her or things will get ugly. After some time pt began to walk towards her room and stopped at the hallway elevator and stated im not going any further until this place gets the elevator fixed. Nursing staff informed pt that we were taking her to seclusion and at this time security and housekeeping assistant assisted pt in the direction of the seclusion room. Pt walked into seclusion willingly at 0055. A 1:1 sitter was placed on the pt at this time. While in seclusion pt was hitting the call light, beating on the door and yelling at nursing staff. Pt was informed multiple times that if she could be calm and cooperative she could be released from seclusion. Pt continued these behaviors for awhile until she finally laid down at 0140. Pt was released from seclusion at 0150 but remained asleep in room until approximately 0215. At this time pt came out of the seclusion room stumbling and appeared very tired. This nurse and other RN assisted pt back to her bed in room 170. At this time drinks and snacks were offered and pt declined. Pt is now observed resting in bed quietly with eyes closed. Behavioral monitoring continues
[2023-09-08 06:00] VITALS: RESP 16
--- NOTE | 2023-09-08 06:46 | PC.NURSE ---
Pt resting in bed. vitals not obtain due to patient's behavior and heavy sedation. Respiration Rate 16.
--- NOTE | 2023-09-08 07:28 | W.PM.NPUH&PS ---
Providers/Chief Complaint Admitting Physician: Jesse Colbert MD Chief Complaint: MHE HPI NPU History of Present Illness Eleonora Marte is a 48 year old female who presented to the emergency department with the following report: Chief Complaint: Psychiatric Symptoms Stated Complaint: MHE Time Seen by Provider: 09/07/23 14:05 History of Present Illness: 48-year-old female who presents to the emergency room in handcuffs with police with a court ordered 96-hour hold for psychosis. According to affidavit sent to the emergency room she has been talking to people as if they were alive. They report nonsensical rambling and flight of ideas. Apparently she has been harassing the neighbors. They say that she stole some medics medications from the porch. Police report that when they arrived at her home she was naked and masturbating in the front yard. Family reports that this happens fairly frequently they are and this is how it normally starts before she begins trying to harm herself or others. She was admitted to the neuropsychiatric unit for definitive treatment of those issues. She is known to the inpatient services through an inpatient stay in 2022. An excerpt of the stay is included below for context and her limited ability as a historian. She presented today with reports of extremely poor decision-making on the unit per staff and direct observation. There was a very irritable patient that was increasing and aggression and she was making inappropriate comments to him and approaching him the way that would have put her in danger if he would have reacted. She did not have any clear reporting on what has been going on since her last visit. Her responses were odd at best and fairly confused in general. She was able to identify that she has not been taking her medications for some time and was not very interested in the prospect of restarting her medication. We discussed the fact that she was on a hold and that her leaving the hospital is likely going to be related to medications being restarted and her having improvement. We discussed the agitation that she demonstrated in the emergency department and our desire to avoid those types of issues moving forward. We discussed the risks, benefits and alternatives of restarting her medication and she understood and agreed to proceed as is documented in this note. Per her 06/09/2022 [facility] inpatient psychiatric discharge summary: Discharge Diagnosis (1) Bipolar affective, manic, unspec: Status: Acute (2) Psychotic disorder: Status: Acute Reason for Visit Reason for Visit: SUICIDAL/ HOMICIDAL IDEATIONS Brief History: History of Present Illness Eleonora Marte is a 47 year old female who presented to the emergency room after the patient's daughter and the daughter's roommate had requested that the behavioral health clinic and [facility] placed the patient on a 96-hour hold. The patient's daughter had reported that the patient was hallucinating and had made threats to burn down the house. She had also indicated that the patient had a secret code and was talking to herself using a special language. She had also made threats to hurt her parents. The patient has been increasingly confused and has been reportedly not sleeping well with periods of increased agitation. The patient was positive for THC in her urine. She was a poor historian and unable to provide any further information. Prior to her admission onto the neuropsychiatric unit, she was seen laughing hysterically and appeared to be hearing and seeing things. She had required Ativan and a as needed antipsychotic prior to arrival on the unit. Patient was unable to provide any further information on interview. Past psychiatric history: Unknown Current medications none Allergies: No known drug allergies Medical history: Unknown Drug and alcohol history: Only history of reported marijuana use. Social history: Patient had reported living in [place] and was unable to provide any further information. There appears to be evidence that she has a daughter. Hospital Course She slowly acclimated to the individual, group and milieu therapies provided. She presented with significant rosas and very poor insight. Zyprexa was titrated up to 5 mg in the morning and 15 mg at night with significant improvement. She worked with the social work team for appropriate discharge planning and outpatient resources. She was able contract for safety outside the hospital prior to discharge. During the hospitalization, patient had routine laboratory studies which were within normal limits except for few outliers. Additionally there was a general medical evaluation which was also within normal limits and revealed no new acute processes. At the time of discharge, she denied psychosis or lethality. Mood and anxiety were well managed. Patient endorsed a plan to avoid all drugs of abuse and follow-up with the aftercare recommendations of the treatment team. Patient was evaluated and deemed to be absent credible lethality, and had achieved the maximum benefit from an inpatient hospitalization, so was discharged. Meds NPU Home Medications Medication Instructions Recorded Confirmed Last Taken Type loratadine 10 mg tablet 10 mg PO DAILY 30 days #30 tabs 04/28/23 07/26/24 Unknown Rx olanzapine 15 mg tablet (Zyprexa) 15 mg PO BEDTIME 30 days #30 tabs 06/09/22 09/07/23 Unknown Rx olanzapine 5 mg tablet 5 mg PO DAILY 30 days #30 tabs 06/09/22 09/07/23 Unknown Rx Allergies Allergy/AdvReac Type Severity Reaction Status Date / Time No Known Allergies Allergy Verified 05/23/22 18:27 Mental Status Exam MSE Comments: This is a well-nourished well-developed white female in hospital scrubs with limited grooming and eye contact. No abnormal movements except for significant psychomotor retardation. Uncooperative with exam in mild to moderate distress. Speech was decreased rate and volume many times needing to be asked to repeat her self. Mood not really describe affect guarded. Thought process disorganized generally but occasionally linear with some trouble telling a coherent story without jumping from different story lines. Thought content: Patient denied suicidal or homicidal ideation, there were no delusions reported but some paranoia and guardedness as well as other likely bizarre delusions noted, she denied auditory or visual hallucinations. Attention and concentration were limited and memory was unreliable but none were formally tested. She is alert and oriented x person and place. Insight, judgment and impulse control are impaired. Vitals/I&O/Wt Last Vital Signs Temp 98.6 F 09/07/23 16:14 Pulse 63 09/07/23 16:14 Resp 16 09/08/23 06:00 BP 124/82 09/07/23 16:14 Pulse Ox 98 09/07/23 16:14 O2 Del Method Room Air 09/07/23 14:05 Weight last 48 hrs Weight 68.039 kg Data NPU 09/07/23 14:21 09/07/23 14:21 A&P Assessment and plan (1) Psychotic disorder: (2) Acute psychosis: Plan The patient is a 48-year-old white female who presents acutely psychotic with causes unknown currently involuntarily hospitalized and unable to provide any clear history at this time. She will continue to require acute inpatient hospitalization. 1.? Engage patient in individual ,milieu, and group therapy 2..? We will attempt to gather collateral information from previous providers 3. TO-15 minute checks on the unit 4. We will attempt to initiate antipsychotics hopefully with a long-acting version given her return and needed interventions. Involuntary Hold Information 96 Hour Hold: 96 Hour Involuntary Admission: Yes Attestations NPU Medical Necessity Statement*: Inpatient hospitalization is medically necessary and the clinically appropriate intervention at this time. We will initiate medications and make changes as indicated. She will be in the hospital for over 2 midnights. Her likely length of stay is 7 to 10 days. Coding Level of Care Code Acute Code for [facility] Fwd Diagnoses Psychotic disorder F29 Acute psychosis F23
--- NOTE | 2023-09-08 09:52 | PC.NURSE ---
UP IN ROOM LOOKING OUT THE WINDOW. PT IS CALMER THIS AM. DENIES PAIN. DENIES SI/HI AND AVH AT THIS TIME. RATES ANXIETY 5/10 AND DEPRESSION 0/10. PT DECLINES ANY TAKING ANY MEDICATIONS AT THIS TIME. PT IS NOTED TO HAVE A FLAT AFFECT AND DEPRESSED MOOD. PT STATES HER GOAL FOR THE DAY IS GO HOME. PT WAS EDUCATED ON 96 HOUR AND WHAT THE PROCESS IS. PT VERBALIZED UNDERSTANDING. ALL QUESTIONS ANSWERED AND SUPPORT VOICED.
[2023-09-08 14:00] VITALS: BP 133/88; PULSE 78; RESP 16; TEMP 36.8; O2SAT 99
[2023-09-08] MEDS: nicotine 2 mg Gum 4 MG BUCCAL ×2 (17:47→19:43)
[2023-09-08 21:17] VITALS: BP 128/90; PULSE 82; RESP 18; TEMP 36.8; O2SAT 96
[2023-09-09] MEDS: nicotine 2 mg Gum 4 MG BUCCAL ×2 (02:46→19:09)
--- NOTE | 2023-09-09 04:00 | PC.NURSE ---
Behavioral At approximately 0245 pt began to get agitated that staff would not allow her to have a cigarette. Pt began walking up and down the hallway yelling give me a fucking cigarette now. Risk Modeler and Security were notified at this time. This nurse responded and attempted to verbally deescalate the pt. At this time another pt came out of his room and began yelling at her. The two pts began to have a verbal altercation and this Rn and another DIRECTOR OF COMMUNITY CENTER was able to separate the patients. Staff was able to get the male pt back into his room while security and this nurse remained with the female pt. Security and this RN walked with pt down to the dayroom and informed her that she cannot be yelling and being disruptive. Pt apologized and agreed to stay calm. Pt remained in dayroom and watched TV for awhile and is now observed resting in bed quietly with eyes closed. Behavioral monitoring continues.
[2023-09-09 06:00] VITALS: BP 138/94; PULSE 73; RESP 18; TEMP 36.6; O2SAT 100
[2023-09-09] MEDS: haloperidol inj 5 mg/mL INJ 1 mL IM (07:18)
[2023-09-09] MEDS: LORazepam 2 mg/mL INJ 1 mL IM (07:18)
[2023-09-09] MEDS: diphenhydrAMINE 50 mg/mL SDV 1mL IM (07:19)
--- NOTE | 2023-09-09 08:32 | PC.NURSE ---
Patient was given a B52 during shift change, as a Code 10 had to be called for her behaviors. When doing her assessment this morning it appeared the patient was drowsy from the medications and was slurring her words.She denied avh and si/hi. She states she did not sleep at all last night and that typically she sleeps 5-6 hours.
--- NOTE | 2023-09-09 08:51 | PC.NURSE ---
pt arguing with patient in room 152 about his coffee being poison grabbed his pt cup then they proceeded to pull back and forth on the cup for the coffee at this point this napping machine operator told pt from room 152 to let pt in room 170 to have the cup of coffee and and we will get him another one which we did. pt from room 152 took equal to symone his coffee an at that point pt in 170 told not to put that poison in his coffee to give it to her. then when he started to walk away stating no I want it in my coffee walking down hallway to his room shutting door pt in room 170 following saying no give me that poison, I won't stop following you until you give me that poison. pt in [address] door way in of 152 room Zachary Rankin and this napping machine operator went out into hallway to assist pt in room 152. pt from 170 at that time went inside pt 152 room to retrieve the equal from pt who immediately came out of room going down hallway towards dayroom followed by pt from room 170. nursing staff attempted to intercept pt so pt from room 152 could go back to his room after going around multiple tables to avoid her. at this time decision made to call a code 10 do to verbal deescalation attempt by multiple nursing staff were unsuccessful. nursing staff are standing in front of room 152 with door shut with pt inside to insure his safety while pt from room 170 is yelling stating she will wake the whole floor up even the patient from room 151 who she had an altercation with the night before. Night Nursing staff, Day Nursing Staff, Security, RN from ER, Zoology Technical Officer from ICU,Stone Cutter responded to code. pt walked to her room on her own accord accompanied by staff then a injection administered of Benadryl to left deltoid and Ativan and Haldol in right deltoid administered by this napping machine operator and timoteo Flynn.
[2023-09-09 14:00] VITALS: BP 115/86; PULSE 86; RESP 20; TEMP 36.6; O2SAT 97
--- NOTE | 2023-09-09 18:46 | W.PM.NPUPNS ---
Subjective NPU Subjective: The patient is a 48-year-old female with a history of psychosis admitted with bizarre behavior and recent threats to her neighbor. She reported that she had felt worse taking her medications despite it helping to keep her out of the hospital. She did not have any acts of aggression here on the unit. She was unable to provide any reason for why she had been placed in the hospital. The patient had continued to have episodes of verbally threatening behavior to her peers and some staff members and struggled with sleep last night. Patient had stated that she wished to go home as soon as possible. Mental Status Exam MSE Comments: Initially the patient had been seen wandering in the [place] with poor boundaries repeatedly intruding in other peers affairs. She appeared confused and agitated at times. She was alert and oriented only to person and continued to think that she was in [facility]. She was unable to provide date, time, or situation. Her mood described as fine. Her affect was bizarre. She did appear to be responding to internal stimuli. She reported others were trying to hurt her. She appeared older than her stated age. Her gait appeared within normal limits. Her hygiene is poor. There was no clear evidence of tics or tremors appreciated. There was clear evidence of delusional thinking. Her attention and concentration were impaired. Her insight and judgment are impaired. Her impulse control is poor. Vitals/I&O/Wt Last Vital Signs Temp 98 F 09/09/23 14:00 Pulse 86 09/09/23 14:00 Resp 20 H 09/09/23 14:00 BP 115/86 09/09/23 14:00 Pulse Ox 97 09/09/23 14:00 O2 Del Method Room Air 09/09/23 06:00 Weight last 48 hrs Weight 66.735 kg Data NPU 09/07/23 14:21 09/07/23 14:21 A&P Assessment and plan (1) Psychotic disorder: Plan The patient is a 48-year-old white female who presents acutely psychotic with causes unknown currently involuntarily hospitalized and unable to provide any clear history at this time. She will continue to require acute inpatient hospitalization. 1.? Engage patient in individual ,milieu, and group therapy 2..? We will attempt to gather collateral information from previous providers 3. TO-15 minute checks on the unit 4. Patient was given as needed medication shortly after interview due to aggression and agitation. Restart zyprexa 10mg at night. Involuntary Hold Information 96 Hour Hold: 96 Hour Involuntary Admission: Yes 96 Hour Hold Ending Date: 09/13/23 96 Hour Hold Ending Time: 14:32 Attestations NPU Medical Necessity Statement*: Inpatient hospitalization is medically necessary and deemed to be the clinically appropriate decision at this time. We will initiate medications and make changes as indicated. Her likely length of stay is 7 to 10 days. Coding Level of Care Code Acute Code for [facility] Fwd Diagnoses Psychotic disorder F29
[2023-09-09 21:27] VITALS: BP 120/82; PULSE 99; RESP 18; TEMP 36.9; O2SAT 98
--- NOTE | 2023-09-09 21:38 | PC.NURSE ---
Pt wanted to speak with this nurse, stating that she wanted to make sure that we were best friends. 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 Pt refused to take her Zyprexa from the med nurse, but states she would take it from me because we are friends. Pt took medication w/o difficulty.
[2023-09-09] MEDS: OLANZapine 10 mg TABLET PO (21:42)
[2023-09-10 06:00] VITALS: BP 110/77; PULSE 96; RESP 16; TEMP 37.2; O2SAT 98
[2023-09-10] MEDS: nicotine 2 mg Gum 4 MG BUCCAL ×2 (08:33→21:38)
--- NOTE | 2023-09-10 09:37 | PC.NURSE ---
PT CURRENTLY DENIES SI/HI/AH/VH. PT CURRENTLY DENIES DEPRESSION. PT STATES THAT SHE HAS SOME ANXIETY BUT DOES NOT WANT ANY MEDICATION FOR IT. PT IS IRRITATED AND NEGATIVE ABOUT OUR CURRENT PHYSICIAN. THIS NURSE ATTEMPTED TO REASSURE PT ABOUT PHYSICIAN HOWEVER PT WAS RESISTANT TO THIS. THIS NURSE THEN ASKED WHAT WOULD HELP PT FEEL MORE COMFORTABLE. IT WAS DECIDED THAT THIS NURSE WOULD SIT IT WITH PT DURING PHYSICIAN VISIT WITH HER. PT WAS APPRECIATIVE. PT IS CURRENTLY PACING THE HALLWAYS. AWAITING VISIT FROM PHYSICIAN. PT CURRENT NEEDS ARE MET AT THIS TIME.
[2023-09-10 14:00] VITALS: BP 111/79; PULSE 109; RESP 16; TEMP 36.6; O2SAT 97
--- NOTE | 2023-09-10 17:56 | W.PM.NPUPNS ---
Subjective NPU Subjective: The patient is a 48-year-old female with a history of psychosis admitted with bizarre behavior including engaging in self stimulation in the front of her lawn along with reports of recent threats to her neighbors. Patient reported side effects from her antipsychotic medication including Zyprexa and states that she had discontinued it in the past. She had reported that she does have bipolar disorder and would be interested in considering a medication to prevent these events from occurring. 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 She remained somewhat intrusive on the milieu. She had difficulties with redirection. She did not require any as needed medications yesterday. She had continued to report that she was upset that having been hospitalized against her will. Mental Status Exam MSE Comments: Initially the patient had been seen wandering in the [place] with poor boundaries repeatedly intruding others affairs. Her hygiene is poor. Her gait appeared within normal limits.She appeared older than her stated age. She appeared less confused and agitated during the interview today. There was no evidence of any abnormal involuntary motor movements tics or tremors appreciated. She was alert and oriented only to person and continued to think that she was in [facility]. She was unable to provide date, time, or situation. Her mood described as okay. Her affect was bizarre and mood incongruent. Her thought content showed no evidence of suicidal or homicidal ideation. She denied any auditory or visual hallucinations but she did appear to be responding to internal stimuli. She reported others were trying to hurt her. There was clear evidence of bizarre delusional thinking but no disorganized behavior. Continued ideas of reference are present and paranoia. Her attention and concentration were impaired. Her insight and judgment are impaired. Her impulse control is poor. Vitals/I&O/Wt Last Vital Signs Temp 98 F 09/10/23 14:00 Pulse 109 H 09/10/23 14:00 Resp 16 09/10/23 14:00 BP 111/79 09/10/23 14:00 Pulse Ox 97 09/10/23 14:00 O2 Del Method Room Air 09/10/23 14:00 Weight last 48 hrs Weight 66.735 kg Data NPU 09/07/23 14:21 09/07/23 14:21 A&P Assessment and plan (1) Psychotic disorder: Plan The patient is a 48-year-old white female who presents acutely psychotic with causes unknown currently involuntarily hospitalized and unable to provide any clear history at this time. She will continue to require acute inpatient hospitalization. 1.?Engage patient in individual ,milieu, and group therapy 2.?We will attempt to gather collateral information from previous providers 3. TO-15 minute checks on the unit 4. Patient agreeable to trial of abilify oral to begin at 10mg and reduce zyprexa to 5mg daily. Involuntary Hold Information 96 Hour Hold: 96 Hour Involuntary Admission: Yes 96 Hour Hold Ending Date: 09/13/23 96 Hour Hold Ending Time: 14:32 Attestations NPU Medical Necessity Statement*: Inpatient hospitalization is medically necessary and deemed to be the clinically appropriate decision at this time. We will initiate medications and make changes as indicated. Her likely length of stay is 7 to 10 days. Coding Level of Care Code Acute Code for [facility] Fwrony Diagnoses Psychotic disorder F29
[2023-09-10] MEDS: ARIPiprazole 10 mg Tablet PO (18:41)
[2023-09-10] MEDS: OLANZapine 10 mg TABLET 5 MG PO (21:20)
[2023-09-10 22:00] VITALS: BP 110/79; PULSE 95; RESP 18; TEMP 36.4; O2SAT 97
[2023-09-11 06:00] VITALS: BP 116/83; PULSE 104; RESP 17; TEMP 36.7; O2SAT 96
[2023-09-11] MEDS: nicotine 2 mg Gum 4 MG BUCCAL (08:42)
--- NOTE | 2023-09-11 09:35 | PC.NURSE ---
Pt stated that she might take her medication at shift change tonight. Staff encouraged pt to please take her medication, pt smiled and said that I was trying to trick her.
--- NOTE | 2023-09-11 13:20 | PC.NURSE ---
This feature writer asked and encouraged Pt to please take her abilify dose for today. Pt declined with a smile.
[2023-09-11 14:00] VITALS: BP 128/88; PULSE 117; RESP 18; TEMP 36.6; O2SAT 97
[2023-09-11] MEDS: phenyleph-mineral oil-petrolat Oint 28 gm 1 APPLIC TOPICAL (14:58)
[2023-09-11] MEDS: nicotine 2 mg Gum BUCCAL ×2 (18:34→22:57)
--- NOTE | 2023-09-11 19:37 | P.NPUPN_ITS ---
Subjective NPU 2 Subjective: The patient is a 48-year-old female with a history of psychosis admitted with bizarre behavior including engaging in self stimulation in the front of her lawn along with reports of recent threats to her neighbors. Patient had reported that her rights are being violated. She had continued to perseverate about whether doctors here were violating the Hippocratic oath. She did continue to engage in confrontational behavior verbally on the unit stating that she did not need to be here and she simply needed to go out and began helping others. She had refused her Abilify today. She had reported that staff here would be harmed if she did not leave here soon enough. Mental Status Exam 2 MSE Comments: Initially the patient had been seen wandering in the [place] with poor boundaries repeatedly intruding others affairs. Her hygiene is poor. Her gait appeared within normal limits.She appeared older than her stated age. She appeared less confused but remained agitated and threatening on the milieu. There was no evidence of any abnormal involuntary motor movements tics or tremors appreciated. She was alert and oriented only to person and place today. She was unable to provide date, time, or situation. Her mood described as okay. Her affect was bizarre and mood incongruent. Her thought content showed no evidence of suicidal or homicidal ideation. She denied any auditory or visual hallucinations but she did appear to be responding to internal stimuli. She reported others were trying to hurt her. There was clear evidence of bizarre delusional thinking but no disorganized behavior. Continued ideas of reference are present and paranoia. Her attention and concentration were impaired. Her insight and judgment are impaired. Her impulse control is poor. Vitals/I&O/Wt Last Vital Signs Temp 98 F 09/11/23 14:00 Pulse 117 H 09/11/23 14:00 Resp 18 09/11/23 14:00 BP 128/88 09/11/23 14:00 Pulse Ox 97 09/11/23 14:00 O2 Del Method Room Air 09/11/23 06:00 Data NPU 09/07/23 14:21 09/07/23 14:21 A&P Assessment and plan (1) Psychotic disorder: Plan The patient is a 48-year-old white female who presents acutely psychotic with causes unknown currently involuntarily hospitalized and unable to provide any clear history at this time. She will continue to require acute inpatient hospitalization. 1.?Engage patient in individual ,milieu, and group therapy 2.?We will attempt to gather collateral information from previous providers 3. TO-15 minute checks on the unit 4. Discontinue zyprexa and continue abilify 15mg daily. Patient has been inconsistent and noncooperative and may require forced medications. Involuntary Hold Information 2 96 Hour Hold: 96 Hour Involuntary Admission: Yes 96 Hour Hold Ending Date: 09/13/23 96 Hour Hold Ending Time: 14:32 Attestations NPU 2 Medical Necessity Statement*: Inpatient hospitalization is medically necessary and deemed to be the clinically appropriate decision at this time. We will initiate medications and make changes as indicated. Her likely length of stay is 7 to 10 days. Coding Level of Care Code Acute Code for [facility] Diagn[facility] Psychotic disorder F29
[2023-09-11 19:57] VITALS: BP 109/82; PULSE 114; RESP 18; TEMP 36.7; O2SAT 97
[2023-09-11] MEDS: acetaminophen 325 mg Tablet 650 MG PO (21:03)
[2023-09-12 06:00] VITALS: BP 125/85; PULSE 108; RESP 22; TEMP 36.8; O2SAT 96
[2023-09-12] MEDS: acetaminophen 325 mg Tablet 650 MG PO ×2 (06:33→16:36)
[2023-09-12] MEDS: nicotine 2 mg Gum BUCCAL ×2 (08:36→18:18)
--- NOTE | 2023-09-12 08:53 | PC.NURSE ---
pt up at nursing station requesting nicotine gum. refused ablifiy medication this am.
--- NOTE | 2023-09-12 09:50 | PC.NURSE ---
PT PACING UP AND DOWN THE HALLS THIS AM. ANXIETY IS NOTED. PT IS NOTED TO HAVE AN IRRITABLE AFFECT AND MAKES SEVERAL COMPLAINTS REGARDING MY HIPPA RIGHTS. PT WROTE A BIZARRE NOTE AND WANTED STAFF TO GIVE IT TO THE REEL TENDER AND HAS ALSO REQUESTED TO SPEAK TO THE HOOP PUNCHER TODAY. REEL TENDER WAS NOTIFIED OF REQUEST. PT CONTINUES TO REFUSE MEDICATIONS. RATES ANXIETY 02/21 STATING ONLY BECAUSE MY GRANDMA / RATES DEPRESSION 03/24. PT APPEARS TO HAVE INAPPROPRIATE RESPONSE TO THE LOSE OF HER GRANDMOTHER. PT STATES THEY ARE CLOSE BUT WHEN RN ASKED IF SHE WAS OK PT STATED YEAH SHE LIVED A GOOD LIFE. PT REPORTS SHE SLEPT GOOD. DENIES SI/HI AND AVH AT THIS TIME. PT STATES HER GOAL FOR THE DAY IS FOR EVERYONE TO BE HAPPY AND PEACEFUL. 96 HOUR HOLD COMPLETED AT 1432 TOMORROW. ALL. QUESTIONS ANSWERED AND SUPPORT WAS VOICED.
[2023-09-12 14:00] VITALS: BP 111/78; PULSE 90; RESP 16; TEMP 36.7; O2SAT 97
[2023-09-12] MEDS: multivitamin therapeutic Tablet 1 TAB PO (15:22)
--- NOTE | 2023-09-12 16:34 | PC.NURSE ---
PT COMPLAINS OF HEADACHE, HOLDING HER HEAD AND STATES I'M HAVING A STROKE.' RATES HEADACHE PAIN 08/21. VITALS COMPLETED AND FOLLOWS: 116/84, HR 90. PT THEN SAT IN THE FLOOR AND STARTED YELLING AND CRYING. TYLENOL GIVEN ORDERED.
--- NOTE | 2023-09-12 16:37 | PC.NURSE ---
PT THEN INSISTED THAT THE VITALS ARE WRONG, AND MY HEAD HURTS, YOU NEED TO BELIEVE ME. PT ASSURED EVERY ONE BELIEVES HERT AND TRYING ARE ALL TRYING TO HELP. PT DEMANDED STAFF COMPLETE A MANUAL, I WILL DO IT ON MYSELF. PT WAS INFORMED SHE WILL NOT BE ABLE TO DO A MANUAL BP ON HERSELF THAT IT IS NOT POSSIBLE AND THAT STAFF WILL NEED TO OBTAIN THE VITALS. CONSTRUCTION FIELD ENGINEER CAME TO SPEAK TO PT AND ASSISTED HER TO HER ROOM WHILE PT CONTINUED TO CRY. PT STATES LET ME TALK TO IMELDA AND THEN YOU CAN DO THE MANUAL PT LEFT IN ROOM TO SPEAK TO IMELDA. SUPPORT VOICED.
--- NOTE | 2023-09-12 18:04 | PC.NURSE ---
pt up at the window stating that she does not want to be alone with Doctor because he is not a [employer] so he is the [employer]. pt then starts to laugh. then pt walked away.
--- NOTE | 2023-09-12 18:06 | P.NPUPN_ITS ---
Subjective NPU 2 Subjective: The patient is a 48-year-old female with a history of psychosis admitted with bizarre behavior including engaging in self stimulation in the front of her lawn along with reports of recent threats to her neighbors. Patient continued to remain manic while remaining irritable. She had remained intrusive and difficult to redirect. She had continued to report that her rights are being violated and that she needed to go home as her grandmother had . She continued to make verbal threats to the group underwriter of this note. She had struggled with requiring redirection as she had been loud and continuing to remain difficult to redirect. The patient had refused her Abilify yesterday and the day prior. She had refused her Abilify this morning but was able to take her medication later. Mental Status Exam 2 MSE Comments: Initially the patient had been seen wandering in the [place] with poor boundaries repeatedly intruding others affairs. Her hygiene is poor. Her gait appeared within normal limits.She appeared older than her stated age. She appeared less confused but remained agitated and brooding on the milieu. There was no evidence of any abnormal involuntary motor movements tics or tremors appreciated. She was alert and oriented only to person and place today. She was able to report person, place and time correctly today. Her mood described as fine. Her affect was labile and irritable. Her thought content showed no evidence of suicidal or homicidal ideation. She denied any auditory or visual hallucinations and did not appear to be responding to internal stimuli. She reported others were trying to hurt her. There was clear evidence of bizarre delusional thinking but no disorganized behavior. Continued ideas of reference are present along with paranoia. Her attention and concentration were impaired. Her insight and judgment are impaired. Her impulse control is poor. Vitals/I&O/Wt Last Vital Signs Temp 98.0 F 09/12/23 14:00 Pulse 90 09/12/23 14:00 Resp 16 09/12/23 14:00 BP 111/78 09/12/23 14:00 Pulse Ox 97 09/12/23 14:00 O2 Del Method Room Air 09/12/23 14:00 09/12/23 09/12/23 09/12/23 06:59 14:59 22:59 Intake Total 720 / 720 236 / 956 Balance 720 / 720 236 / 956 Data NPU 09/07/23 14:21 09/07/23 14:21 A&P Assessment and plan (1) Psychotic disorder: Plan The patient is a 48-year-old white female who presents acutely psychotic with causes unknown currently involuntarily hospitalized and unable to provide any clear history at this time. She will continue to require acute inpatient hospitalization. 1.?Engage patient in individual ,milieu, and group therapy 2.?We will attempt to gather collateral information from previous providers 3. TO-15 minute checks on the unit 4. Abilify 15mg daily. Patient has been inconsistent and noncooperative and may require forced medications. Involuntary Hold Information 2 96 Hour Hold: 96 Hour Involuntary Admission: Yes 96 Hour Hold Ending Date: 09/13/23 96 Hour Hold Ending Time: 14:32 Attestations NPU 2 Medical Necessity Statement*: Inpatient hospitalization is medically necessary and deemed to be the clinically appropriate decision at this time. We will initiate medications and make changes as indicated. Her likely length of stay is 7-10 days. Coding Level of Care Code Acute Code for [facility] Diagnoses Psychotic disorder F29
[2023-09-12] MEDS: ARIPiprazole 30 mg Tablet 15 MG PO (18:18)
--- NOTE | 2023-09-12 18:24 | PC.NURSE ---
administered abilify 15mg per pt request. pt came to window asking what medication He (the DrReggie) has ordered tonight when informed by this director cardiac that she does not have any medication order for bedtime only morning medication. pt asked then why did they try to give me medication last night for then. this director cardiac explained to pt that because nursing staff was attempting to administer the medication (Ablifiy) that she continued to refused throughout the day. pt said fine I will take the medication under duress because I know he ( the Doctor ) will not let me out until I do. How do I get another Doctor to come and see me I have my own psychiatrist an he can come and see me because I do not trust him because he is not a [employer] so he is the [employer]. turned and walked away. pt then came to window medication administered pt attempted to pocket pill under tongue became upset when I told her that the med was under her tongue then pt did exaggerated tongue roll showing she had then swallowed medication.
[2023-09-12 20:39] VITALS: BP 124/81; PULSE 80; RESP 18; TEMP 36.4; O2SAT 97
[2023-09-13] MEDS: acetaminophen 325 mg Tablet 650 MG PO ×2 (02:20→20:22)
[2023-09-13 06:00] VITALS: BP 138/98; PULSE 95; RESP 18; TEMP 36.3; O2SAT 98
[2023-09-13] MEDS: nicotine 2 mg Gum BUCCAL ×3 (06:49→21:04)
[2023-09-13] MEDS: multivitamin therapeutic Tablet 1 TAB PO (08:25)
[2023-09-13] MEDS: ARIPiprazole 30 mg Tablet 15 MG PO (08:26)
--- NOTE | 2023-09-13 09:28 | PC.NURSE ---
PT GAVE THIS RN A NOTE APOLOGIZING FOR MY OBNOXIOUS BEHAVIOR. PT WROTE A LENGTHY TWO PAGE NOTE LAST NIGHT AND WISHES TO HAVE THIS RN, DENITRATOR AND DR. HARRISON TO READ IT. COPY PLACED IN CHART PER PT REQUEST. PT REPORTS INCREASED ANXIETY RATING IT 4/10 DUE TO RECENT LOSS OF HER GRANDMOTHER. RATES DEPRESSION 2/10. PT IS OBSERVED TO SLOWLY SHOW INSIGHT INTO HER BEHAVIORS AND ACTIONS. PT HOPES SHE IS DISCHARGED PRIOR TO HER GRANDMOTHERS AND WOULD LIKE TO ATTEND IT. PT UNSURE OF WHEN IT WILL BE BUT DR. HARRISON AND STAFF WILL REACH OUT TO FAMILY AND SEE WHEN THE IS. DR. HARRISON IS FILING A 21 DAY HOLD. DENIES PAIN. DENIES SI/HI AND AVH AT THIS TIME. PT IS NOTED TO BE IMPULSIVE AT TIMES STILL AND INTRUSIVE ALWAYS BY THE NURSES STATION TRYING TO LISTEN TO EVERYTHING THE STAFF IS SAYING AND TRYING TO INTERJECT HER OPINION. PT HAS BEEN VERBALLY REDIRECTED AWAY FROM THE DESK UNLESS SHE IS RECEIVING MEDICATIONS OR DRINKS TO ENSURE PRIVACY OF ALL PTS. PT HAS BEEN EDUCATED TO STAYING AWAY FROM THE DESK UNLESS SHE HAS NEEDS. ALL QUESTIONS WERE ANSWERED AND SUPPORT WAS VOICED.
[2023-09-13 14:00] VITALS: BP 121/84; PULSE 102; RESP 18; TEMP 36.6; O2SAT 98
[2023-09-13] MEDS: ARIPiprazole Maintena 400 MG IM (16:40)
--- NOTE | 2023-09-13 16:48 | PC.NURSE ---
PT AGREED TO RECEIVE ABILIFY INJECTION. PT WAS GIVEN 400 MG OF ABILIFY IM TO RIGHT DELTOID. PT TOLERATED WELL. EDUCATION PROVIDED ON MEDICATION. ALL QUESTIONS ANSWERED AND SUPPORT VOICED.
--- NOTE | 2023-09-13 17:51 | P.NPUPN_ITS ---
Subjective NPU 2 Subjective: The patient is a 48-year-old female with a history of psychosis admitted with bizarre behavior including engaging in self stimulation in the front of her lawn along with reports of recent threats to her neighbors. Patient had appeared better today. She had expressed interest in going to her grandmother's when stabilized. She had requested intramuscular Abilify. She had reported some improvement in sleep. She had not received any as needed medications and had taken her Abilify oral this morning as prescribed. Mental Status Exam 2 MSE Comments: Casually dressed white female who appeared older than her stated age. Her hygiene was poor but improving. Her gait appeared within normal limits. She appeared less confused but remained agitated and brooding on the milieu. There was no evidence of any abnormal involuntary motor movements tics or tremors appreciated. She was able to report person, place and time correctly today. Her mood described as better Her affect was less irritable with decreased lability noted. Her thought content showed no evidence of suicidal or homicidal ideation. She denied any auditory or visual hallucinations and did not appear to be responding to internal stimuli. No overt delusions were appreciated. There was continued ideas of reference are present with less paranoia noted. Her attention and concentration were impaired. Her insight and judgment are impaired. Her impulse control is poor. Vitals/I&O/Wt Last Vital Signs Temp 97.8 F 09/13/23 14:00 Pulse 102 H 09/13/23 14:00 Resp 18 09/13/23 14:00 BP 121/84 09/13/23 14:00 Pulse Ox 98 09/13/23 14:00 O2 Del Method Room Air 09/12/23 14:00 Data NPU 09/07/23 14:21 09/07/23 14:21 A&P Assessment and plan (1) Psychotic disorder: Plan The patient is a 48-year-old white female who presents acutely psychotic with causes unknown currently involuntarily hospitalized and unable to provide any clear history at this time. She will continue to require acute inpatient hospitalization. 1.?Engage patient in individual ,milieu, and group therapy 2.?We will attempt to gather collateral information from previous providers 3. TO-15 minute checks on the unit 4. Abilify 15mg daily. Patient agreeable to IM abilify 400mg today. Involuntary Hold Information 2 96 Hour Hold: 96 Hour Involuntary Admission: Yes 96 Hour Hold Ending Date: 09/13/23 96 Hour Hold Ending Time: 14:32 Attestations NPU 2 Medical Necessity Statement*: Inpatient hospitalization is medically necessary and deemed to be the clinically appropriate decision at this time. We will initiate medications and make changes as indicated. Her likely length of stay is 7-10 days. Coding Level of Care Code Acute Code for [facility] Fwd Diagnoses Psychotic disorder F29
[2023-09-13 19:54] VITALS: BP 130/76; PULSE 99; RESP 18; TEMP 36.7; O2SAT 98
[2023-09-13] MEDS: blistex lip oint 7 gm Tube 1 APPLIC TOPICAL (20:22)
[2023-09-13] MEDS: artificial tears Op Soln 15 mL Btl 1 DROP EYE-BOTH (21:05)
[2023-09-14] MEDS: trazodone 50 mg Tablet PO ×2 (02:59→19:39)
[2023-09-14 06:00] VITALS: BP 117/89; PULSE 105; RESP 18; TEMP 36.4; O2SAT 97
[2023-09-14] MEDS: ARIPiprazole 30 mg Tablet 15 MG PO (08:00)
[2023-09-14] MEDS: multivitamin therapeutic Tablet 1 TAB PO (08:00)
[2023-09-14] MEDS: nicotine 2 mg Gum BUCCAL ×2 (11:04→17:31)
[2023-09-14 13:56] VITALS: BP 142/88; PULSE 100; RESP 16; TEMP 36.9; O2SAT 98
--- NOTE | 2023-09-14 14:19 | P.NPUPN_ITS ---
Subjective NPU 2 Subjective: The patient is a 48-year-old female with a history of psychosis admitted with bizarre behavior including engaging in self stimulation in the front of her lawn along with reports of recent threats to her neighbors. The patient appeared much calmer and cooperative on the milieu. She had been taking her Abilify without any incident. There is no acts of aggression. She had expressed desire to attend her grandmothers later this week. She had taken her Abilify intramuscular early yesterday without incident as well. She had reported adequate sleep. There was no bizarre behavior noted and she reported no side effects or complaints of excess sedation on this medication. Mental Status Exam 2 MSE Comments: Casually dressed white female who appeared older than her stated age. Her hygiene was improving. Her gait appeared within normal limits. There was no evidence of any abnormal involuntary motor movements tics or tremors appreciated. She was able to report person, place and time correctly today. Her mood described as better Her affect remained somewhat subdued Her thought content showed no evidence of suicidal or homicidal ideation. She denied any auditory or visual hallucinations and did not appear to be responding to internal stimuli. No overt delusions were appreciated. There was no overt paranoia, or ideas of reference. Her attention and concentration were impaired. Her insight was improving and judgment was improving as well. Her impulse control is limited. Vitals/I&O/Wt Last Vital Signs Temp 98.5 F 09/14/23 13:56 Pulse 100 09/14/23 13:56 Resp 16 09/14/23 13:56 BP 142/88 09/14/23 13:56 Pulse Ox 98 09/14/23 13:56 O2 Del Method Room Air 09/14/23 13:56 Data NPU 09/07/23 14:21 09/07/23 14:21 A&P Assessment and plan (1) Psychotic disorder: Plan The patient is a 48-year-old white female who presents acutely psychotic with causes unknown currently involuntarily hospitalized and unable to provide any clear history at this time. She will continue to require acute inpatient hospitalization. 1.?Engage patient in individual ,milieu, and group therapy 2.?We will attempt to gather collateral information from previous providers 3. TO-15 minute checks on the unit 4. Abilify 15mg daily. Abilify Maintena given on 09/13/23. Involuntary Hold Information 2 96 Hour Hold: 96 Hour Involuntary Admission: Yes 96 Hour Hold Ending Date: 09/13/23 96 Hour Hold Ending Time: 14:32 Attestations NPU 2 Medical Necessity Statement*: Inpatient hospitalization is medically necessary and deemed to be the clinically appropriate decision at this time. We will initiate medications and make changes as indicated. Her likely length of stay is 2-3 days. Coding Level of Care Code Acute Code for [facility] Fwd Diagnoses Psychotic disorder F29
[2023-09-14 20:14] VITALS: BP 122/88; PULSE 117; RESP 18; TEMP 36.6; O2SAT 96
[2023-09-15 06:00] VITALS: BP 128/94; PULSE 121; RESP 20; TEMP 36.8; O2SAT 96
[2023-09-15] MEDS: ondansetron 4 MG Tablet PO (06:09)
[2023-09-15] MEDS: multivitamin therapeutic Tablet 1 TAB PO (08:23)
[2023-09-15] MEDS: nicotine 2 mg Gum BUCCAL (08:23)
[2023-09-15] MEDS: ARIPiprazole 30 mg Tablet 15 MG PO (08:24)
--- NOTE | 2023-09-15 11:18 | W.PM.NPUPNS ---
Subjective NPU Subjective: The patient is a 48-year-old female with a history of psychosis admitted with bizarre behavior including engaging in self stimulation in the front of her lawn along with reports of recent threats to her neighbors. Patient has been calm and compliant with her medication regimen. She had reported having occasional hot flashes and requested further evaluation regarding whether she was experiencing menopause. She reported no sleep disturbance. No behavioral problems were noted by staff with the patient requiring no as needed medications. There were no verbal outburst noted. She remained hopeful about leaving soon to attend her grandmother's . She reported no side effects from her Abilify at this time. Mental Status Exam MSE Comments: Casually dressed white female who appeared older than her stated age who was pleasant and cooperative on interview. Her hygiene was improving. Her gait appeared within normal limits. There was no evidence of any abnormal involuntary motor movements tics or tremors appreciated. She was able to report person, place and time correctly today. Her mood described as better. Her affect remained appeared brighter. Her thought content showed no evidence of suicidal or homicidal ideation. She denied any auditory or visual hallucinations and did not appear to be responding to internal stimuli. No overt delusions were appreciated. There was no overt paranoia, or ideas of reference. Her attention span was better. and concentration was better. Her insight was improving and judgment was improving as well. Her impulse control is limited. Vitals/I&O/Wt Last Vital Signs Temp 98.2 F 09/15/23 06:00 Pulse 121 H 09/15/23 06:00 Resp 20 H 09/15/23 06:00 BP 128/94 09/15/23 06:00 Pulse Ox 96 09/15/23 06:00 O2 Del Method Room Air 09/14/23 13:56 Data NPU 09/07/23 14:21 09/07/23 14:21 A&P Assessment and plan (1) Psychotic disorder: Plan The patient is a 48-year-old white female who presents acutely psychotic with causes unknown currently involuntarily hospitalized and unable to provide any clear history at this time. She will continue to require acute inpatient hospitalization. 1.?Engage patient in individual ,milieu, and group therapy 2.?We will attempt to gather collateral information from previous providers 3. TO-15 minute checks on the unit 4. Continue Abilify 15mg daily orally. Abilify Maintena given on 09/13/23. Involuntary Hold Information 96 Hour Hold: 96 Hour Involuntary Admission: Yes 96 Hour Hold Ending Date: 09/13/23 96 Hour Hold Ending Time: 14:32 Attestations NPU Medical Necessity Statement*: Inpatient hospitalization is medically necessary and deemed to be the clinically appropriate decision at this time. We will initiate medications and make changes as indicated. Her likely length of stay is 3-4 days. Coding Level of Care Code Acute Code for [facility] Fwd Diagnoses Psychotic disorder F29
[2023-09-15] MEDS: acetaminophen 325 mg Tablet 650 MG PO (12:09)
--- NOTE | 2023-09-15 12:10 | PC.NURSE ---
PT REQUESTED PRN TYLENOL 650MG PRN FOR MILD PAIN FOR JAW PAIN. SHE STATES THE JAW PAIN IS FROM GRINDING HER TEETH AT NIGHT. THIS NURSE ADMINISTERED MEDICATION.
[2023-09-15 13:54] VITALS: BP 130/85; PULSE 80; RESP 16; TEMP 36.7; O2SAT 95
[2023-09-15 19:19] VITALS: BP 110/60; PULSE 83; RESP 18; TEMP 37; O2SAT 95
[2023-09-15] MEDS: trazodone 50 mg Tablet PO (21:02)
[2023-09-16] MEDS: nicotine 2 mg Gum BUCCAL (05:05)
[2023-09-16 06:00] VITALS: BP 103/75; PULSE 94; RESP 18; TEMP 36.6; O2SAT 97
[2023-09-16 06:53] LABS: Thyroid Stimulating Hormone 10.43 uIU/mL (0.27-4.20)
[2023-09-16] MEDS: multivitamin therapeutic Tablet 1 TAB PO (07:31)
[2023-09-16] MEDS: ARIPiprazole 30 mg Tablet 15 MG PO (07:31)
[2023-09-16] MEDS: nicotine 21 mg Patch 1 PATCH TRANSDERMA (07:32)
[2023-09-16 14:00] VITALS: BP 128/89; PULSE 116; RESP 17; TEMP 37; O2SAT 96
--- NOTE | 2023-09-16 15:51 | P.NPUPN_ITS ---
Subjective NPU 2 Subjective: The patient is a 48-year-old female with a history of psychosis admitted with bizarre behavior including engaging in self stimulation in the front of her lawn along with reports of recent threats to her neighbors. Patient continues to show evidence of improvement. She did not appear manic. She had not had any evidence of aggression. She had been compliant with her Abilify and reported no mood symptoms today. She was pleasant and cooperative on the milieu. Labs were completed as the patient had endorsed having hot flashes and also reporting a history of thyroid abnormality. Patient's TSH was elevated at 10.43 with current T4 pending. Mental Status Exam 2 MSE Comments: Casually dressed white female who appeared older than her stated age who was pleasant and cooperative on interview. Her hygiene was improving. Her gait appeared within normal limits. There was no evidence of any abnormal involuntary motor movements tics or tremors appreciated. She was able to report person, place and time correctly today. Her mood described as good.. Her affect remained appeared brighter and pleasant. Her thought content showed no evidence of suicidal or homicidal ideation. She denied any auditory or visual hallucinations and did not appear to be responding to internal stimuli. No overt delusions were appreciated. There was no overt paranoia, or ideas of reference. Her attention span was better. and concentration was better. Her insight was improving and judgment was improving as well. Her impulse control is limited. Vitals/I&O/Wt Last Vital Signs Temp 98.6 F 09/16/23 14:00 Pulse 116 H 09/16/23 14:00 Resp 17 09/16/23 14:00 BP 128/89 09/16/23 14:00 Pulse Ox 96 09/16/23 14:00 O2 Del Method Room Air 09/15/23 19:19 Weight last 48 hrs Weight 67.585 kg Data NPU 09/07/23 14:21 09/07/23 14:21 A&P Assessment and plan (1) Psychotic disorder: Plan The patient is a 48-year-old white female who presents acutely psychotic with causes unknown currently involuntarily hospitalized and unable to provide any clear history at this time. She will continue to require acute inpatient hospitalization. 1.?Engage patient in individual ,milieu, and group therapy 2.?We will attempt to gather collateral information from previous providers 3. TO-15 minute checks on the unit 4. Continue Abilify 15mg daily orally. Abilify Maintena given on 09/13/23. 5. Scheduled Involuntary hearing scheduled but will likely be cancelled with discharge likely tommorow. Involuntary Hold Information 2 96 Hour Hold: 96 Hour Involuntary Admission: Yes 96 Hour Hold Ending Date: 09/13/23 96 Hour Hold Ending Time: 14:32 Attestations NPU 2 Medical Necessity Statement*: Inpatient hospitalization is medically necessary and deemed to be the clinically appropriate decision at this time. We will initiate medications and make changes as indicated. Her likely length of stay is 1-2 days. Coding Level of Care Code Acute Code for [facility] Fwd Diagnoses Psychotic disorder F29
[2023-09-16 19:33] VITALS: BP 148/83; PULSE 125; RESP 18; TEMP 36.7; O2SAT 97
[2023-09-16] MEDS: blistex lip oint 7 gm Tube 1 APPLIC TOPICAL (21:19)
[2023-09-16] MEDS: acetaminophen 325 mg Tablet 650 MG PO (22:23)
[2023-09-17 04:16] VITALS: BP 126/86; PULSE 95; RESP 18; TEMP 36.9; O2SAT 98
[2023-09-17] MEDS: multivitamin therapeutic Tablet 1 TAB PO (08:17)
[2023-09-17] MEDS: ARIPiprazole 30 mg Tablet 15 MG PO (08:49)
--- NOTE | 2023-09-17 13:08 | P.NPUDS_ITS ---
Diagnoses at Discharge Discharge Diagnosis (1) Psychotic disorder: Status: Acute Reason for Visit Reason for Visit: MHE Brief History: History of Present Illness Eleonora Marte is a 48 year old female who presented to the emergency department with the following report: Chief Complaint: Psychiatric Symptoms Stated Complaint: MHE Time Seen by Provider: 09/07/23 14:05 History of Present Illness: 48-year-old female who presents to the mergency room in handcuffs with police with a court ordered 96-hour hold for psychosis. According to affidavit sent to the emergency room she has been talking to people as if they were alive. They report nonsensical rambling and flight of ideas. Apparently she has been harassing the neighbors. They say that she stole some medics medications from the porch. Police report that when they arrived at her home she was naked and masturbating in the front yard. Family reports that this happens fairly frequently they are and this is how it normally starts before she begins trying to harm herself or others. She was admitted to the neuropsychiatric unit for definitive treatment of those issues. She is known to the inpatient services through an inpatient stay in 2022. An excerpt of the stay is included below for context and her limited ability as a historian. She presented today with reports of extremely poor decision-making on the unit per staff and direct observation. There was a very irritable patient that was increasing and aggression and she was making inappropriate comments to him and approaching him the way that would have put her in danger if he would have reacted. She did not have any clear reporting on what has been going on since her last visit. Her responses were odd at best and fairly confused in general. She was able to identify that she has not been taking her medications for some time and was not very interested in the prospect of restarting her medication. We discussed the fact that she was on a hold and that her leaving the hospital is likely going to be related to medications being restarted and her having improvement. We discussed the agitation that she demonstrated in the emergency department and our desire to avoid those types of issues moving forward. We discussed the risks, benefits and alternatives of restarting her medication and she understood and agreed to proceed as is d ocumented in this note. Per her 06/09/2022 [facility] inpatient psychiatric discharge summary: Discharge Diagnosis (1) Bipolar affective, manic, unspec: Status: Acute (2) Psychotic disorder: Status: Acute Reason for Visit Reason for Visit: SUICIDAL/ HOMICIDAL IDEATIONS Brief History: History of Present Illness Eleonora Marte is a 47 year old female who presented to the emergency room after the patient's daughter and the daughter's roommate had requested [facility] and [facility] placed the patient on a 96-hour h old. The patient's daughter had reported that the patient was hallucinating and had made threats to burn down the house. She had also indicated that the patient had a secret code and was talking to herself using a special language. She had also made threats to hurt her parents. The patient has been increasingly confused and has been reportedly not sleeping well with periods of increased agitation. The patient was positive for THC in her urine. She was a poor historian and unable to provide any further information. Prior to her admission onto the neuropsychiatric unit, she was seen laughing hysterically and appeared to be hearing and seeing things. She had required Ativan and a as needed antipsychotic prior to arrival on the unit. Patient was unable to provide any further information on interview. Past psychiatric history: Unknown Current medications none Allergies: No known drug allergies Medical history: Unknown Drug and alcohol history: Only history of reported marijuana use. Social history: Patient had reported living in [place] and was unable to provide any further information. There appears to be evidence that she has a daughter. Hospital Course She slowly acclimated to the individual, group and milieu therapies provided. She presented with significant rosas and very poor insight. Zyprexa was titrated up to 5 mg in the morning and 15 mg at night with significant improvement. She worked with the social work team for appropriate discharge planning and outpatient resources. She was able contract for safety outside the hospital prior to discharge. During the hospitalization, patient had routine laboratory studies which were within normal limits except for few outliers. Additionally there was a general medical evaluation which was also within normal limits and revealed no new acute processes. At the time of discharge, she denied psychosis or lethality. Mood and anxiety were well managed. Patient endorsed a plan to avoid all drugs of abuse and follow-up with the aftercare recommendations of the treatment team. Patient was evaluated and deemed to be absent credible lethality, and had achieved the maximum benefit from an inpatient hospitalization, so was discharged. Hospital Course Hospital Course During the hospitalization, the patient had routine laboratory studies which were within normal limits except for a few outliers.? Additionally, there was a general medical evaluation which was also within normal limits and revealed no new acute processes.? At the time of discharge, lethality was denied and psychosis was resolving.? Mood and anxiety were well managed.? The patient endorsed a plan to avoid all drugs of abuse and follow up with the aftercare recommendations of the treatment team.? The patient was evaluated and deemed to be absent credible lethality and had achieved the maximum benefit from an inpatient hospitalization, and so was discharged. ?Patient had presented quite psychotic and disorganized initially with evidence of rosas. She was ultimately agreeable to starting Abilify in stead of Zyprexa and after a few days of relative noncompliance, she began the use of Abilify which was titrated up to a dose of 15 mg daily time of discharge. Furthermore the patient had agreed on 09/14/2023 to the use of Abilify Maintena which was given at 400 mg intramuscularly on that day. She responded well with a profound reduction in rosas and limited to no evidence of psychosis or grandiosity. The patient had elevation in TSH above 10 but had normal free T4 and was recommended the patient have this reevaluated in 3 to 6 months with her new primary care physician to determine whether Synthroid was necessary. She was agreeable to monthly Abilify Maintena with a neck scheduled date to be given on 10/12/2023 on an outpatient basis. Involuntary Hold Information 96 Hour Hold: 96 Hour Involuntary Admission: Yes 96 Hour Hold Ending Date: 09/13/23 96 Hour Hold Ending Time: 14:32 Mental Status Exam MSE Comments: Casually dressed white female who appeared older than her stated age who was pleasant and cooperative on interview. Her hygiene was improving. Her gait appeared within normal limits. There was no evidence of any abnormal involuntary motor movements tics or tremors appreciated. She was able to report person, place and time correctly today. Her mood described as good. Her affect remained appeared brighter and pleasant. Her thought content showed no evidence of suicidal or homicidal ideation. She denied any auditory or visual hallucinations and did not appear to be responding to internal stimuli. No overt delusions were appreciated. There was no overt paranoia, or ideas of reference. Her attention span was better. and concentration was better. Her insight was improving and judgment was improving as well. Her impulse control is improved. Discharge Data Studies Completed and Pending: Pending at discharge Category Date Time Status Estrogens Total R outine Lab 09/16/23 06:04 Received T4, Thyroxine, To amy Routine Lab 09/16/23 06:04 Received Laboratory Results WBC 11.32 10^3/uL (3. 29-11.43) 09/07/23 14:21 RBC 4.65 10^6/uL (3.8 5-5.65) 09/07/23 14:21 Hgb 14.60 g/dL (11.27 -16.99) 09/07/23 14:21 Hct 44.4 % (36-47) 09/07/23 14:21 MCV 95.5 fl (85-98) 09/07/23 14:21 MCH 31.4 pg (27-33) 09/07/23 14:21 MCHC 32.9 g/dL (30-55) 09/07/23 14:21 RDW 13.4 % (12.1-15.1 ) 09/07/23 14:21 Plt Count 328 10^3/cmm (157 -399) 09/07/23 14:21 MPV 9.0 fL (7.4-10.4) 09/07/23 14:21 Neut % (Auto) 64.8 % 09/07/23 14:21 Lymph % (Auto) 26.1 % 09/07/23 14:21 Elliott % (Auto) 5.1 % 09/07/23 14:21 Eos % (Auto) 2.9 % 09/07/23 14:21 Baso % (Auto) 0.7 % 09/07/23 14:21 Neut # (Auto) 7.34 10^3/uL (1.8 -7.7) 09/07/23 14:21 Lymph # (Auto) 3.0 10^3/uL (0.8- 4.8) 09/07/23 14:21 Elliott # (Auto) 0.6 10^3/uL (0.2- 0.9) 09/07/23 14:21 Eos # (Auto) 0.3 10^3/uL (0.0- 0.8) 09/07/23 14:21 Baso # (Auto) 0.1 10^3/uL (0.0- 0.1) 09/07/23 14:21 Nucleated RBC % (a uto) 0 % 09/07/23 14:21 Nucleated RBCs # 0.0 /100WBC 09/07/23 14:21 Sodium 142 mmol/L (136-1 45) 09/07/23 14:21 Potassium 4.6 mmol/L (3.5-5 .1) 09/07/23 14:21 Chloride 107 mmol/L (98-10 7) 09/07/23 14:21 Carbon Dioxide 25 mmol/L (22-29) 09/07/23 14:21 Anion Gap 14.6 (5-19) 09/07/23 14:21 BUN 14 mg/dL (6-20) 09/07/23 14:21 Creatinine 0.7 mg/dL (0.5-0. 9) 09/07/23 14:21 GFR Calculation 88.9 mL/min (90-1 30) L 09/07/23 14:21 Glucose 113 mg/dL (65-115 ) 09/07/23 14:21 Calculated Osmolal ity 295 mOsm/kg (285- 295) 09/07/23 14:21 Calcium 8.9 mg/dL (8.5-10 .5) 09/07/23 14:21 Total Bilirubin 0.2 mg/dL (0.15-1 .2) 09/07/23 14:21 AST 15 U/L (0-32) 09/07/23 14:21 ALT 8 U/L (0-33) 09/07/23 14:21 Alkaline Phosphata se 103 U/L (35-105) 09/07/23 14:21 Total Protein 6.8 g/dL (6.6-8.7 ) 09/07/23 14:21 Albumin 4.0 g/dL (3.5-5.2 ) 09/07/23 14:21 Globulin 2.8 g/dL (1.3-4.6 ) 09/07/23 14:21 TSH 10.43 uIU/mL (0.2 7-4.20) H 09/16/23 06:04 Free T4 0.90 ng/dL (0.82- 1.77) 09/16/23 06:04 FSH 31.0 mIU/mL 09/16/23 06:04 HCG, Qual Negative (Negati ve) 09/07/23 15:33 Urine Color Yellow (Yellow) 09/07/23 15:33 Urine Appearance Clear (CLEAR) 09/07/23 15:33 Urine pH 7 (5-7) 09/07/23 15:33 Ur Specific Gravit y 1.010 (1.005-1.0 30) 09/07/23 15:33 Urine Protein Neg (Negative) 09/07/23 15:33 Urine Glucose (UA) Norm (Normal) 09/07/23 15:33 Urine Ketones Negative (Negati ve) 09/07/23 15:33 Urine Blood 3+ (Negative) H 09/07/23 15:33 Urine Nitrate Negative (Negati ve) 09/07/23 15:33 Urine Bilirubin Neg (Negative) 09/07/23 15:33 Urine Urobilinogen 1 mg/dL (Negative ) H 09/07/23 15:33 Ur Leukocyte Liat ase Trace (Negative) H 09/07/23 15:33 Urine RBC 0-4 /hpf (0-2) H 09/07/23 15:33 Urine WBC 5-10 /hpf (0-5) H 09/07/23 15:33 Ur Squamous Epith Cells 25-40 /hpf (0-5) H 09/07/23 15:33 Amorphous Sediment Not Reportable 09/07/23 15:33 Urine Bacteria 1+ /hpf (NONE) H 09/07/23 15:33 Salicylates < 0.3 mg/dL (3-10 ) L 09/07/23 14:21 Urine Opiates Scre en Negative ng/mL (N egative) 09/07/23 15:33 Acetaminophen < 5.0 ug/mL (10-3 0) L 09/07/23 14:21 Ur Barbiturates Sc reen Negative ng/mL (N egative) 09/07/23 15:33 Ur Phencyclidine S crn Negative ng/mL (N egative) 09/07/23 15:33 Ur Amphetamines Sc reen Negative ng/mL (N egative) 09/07/23 15:33 U Benzodiazepines Scrn Negative ng/mL (N egative) 09/07/23 15:33 Urine Cocaine Scre en Negative ng/mL (N egative) 09/07/23 15:33 U Marijuana (THC) Screen Positive ng/mL (N egative) H 09/07/23 15:33 Ethyl Alcohol < 10 mg/dL (0-10) 09/07/23 14:21 Vitals: Last Vital Signs Temp 98.4 F 09/17/23 04:16 Pulse 95 09/17/23 04:16 Resp 18 09/17/23 04:16 BP 126/86 09/17/23 04:16 Pulse Ox 98 09/17/23 04:16 O2 Del Method Room Air 09/15/23 19:19 Discharge Plan Discharge Patient Disposition: Home Condition: Stable Prescriptions: New trazodone 50 mg Tablet 50 mg PO BEDTIME PRN (Reason: Sleep) 30 Days Qty: 30 1RF aripiprazole 30 mg Tablet 15 mg PO DAILY 30 Days Qty: 15 1RF Abilify Maintena 400 mg suspension,extended rel recon 400 mg IM Q28D Qty: 1 1RF Rx Instructions: Next due date: October 12, 2023 Discontinued olanzapine 5 mg Tablet 5 mg PO DAILY 30 Days Qty: 30 1RF Rx Instructions: RX LAST FILLED 06/09/22 30D/S 1 REFILL REMAINING AT [facility] loratadine 10 mg Tablet 10 mg PO DAILY 30 Days Qty: 30 1RF Rx Instructions: RX LAST FILLED 06/09/22 30D/S 1 REFILL REMAINING AT [facility] olanzapine [Zyprexa] 15 mg tablet 15 mg PO BEDTIME 30 Days Qty: 30 1RF Rx Instructions: RX LAST FILLED 06/09/22 30D/S 1 REFILL REMAINING AT [facility] Discharge Orders: Discharge Order (Routine); Ordered 09/17/23 Ordered By: Wilbert Em Referrals: YOBANY Morton [Other] - 10/01/23 8:30 am (Telehealth appointment. ) America Colbert NP [Nurse Practitioner] - 09/24/23 10:30 am (Establish care) Discharge Diet: Usual diet Discharge Activity: Resume usual activity Patient Instructions: Trazodone (By mouth), Aripiprazole (By mouth) (Abilify, Abilify Discmelt), Aripiprazole (By injection) (Abilify Maintena Dual- Chambered..., Bipolar Disorder (DC), Opioid Safety Discharge Attestations NPU Time Spent in Discharge Care*: less than 30 min Specific Discharge Activities: Specific discharge activities: educating patient, discussing with welfare case worker/social workers/dc planners and evaluating patient/reviewing data Coding Level of Care Code Acute Code for Chg Fwd Diagnoses Psychotic disorder F29
[2023-09-17 13:11] VITALS: BP 126/86; PULSE 95; RESP 18; TEMP 36.9; O2SAT 98
[2023-09-18 02:24] LABS: T4 Total 5.8 mcg/dL (5.1-11.9)
[2023-09-22 16:53] LABS: Estrogens Total 224 pg/mL
== END 2023-09-17 14:04 | disposition home or self-care (01) | DRG 885 ==
LOC: ER 15:09 → NP 15:52
PROVIDERS: Admitting Provider Psychiatry & Neurology Psychiatry; Emergency Provider Emergency Medicine; Visit Provider Psychiatry & Neurology Psychiatry
DX: F29 Unspecified psychosis not due to a substance or known physiological condition (principal)
CPT/HCPCS: 36415; 80053; 80306; 80307; 81001; 81025; 82672; 83001; 84436; 84439; 84443; 85025; 93005; 96372; 97150; 97165; 99285; J1200; J1630; J2060; J3486; Q0162

== ENCOUNTER → 2024-11-27 14:54 | Outpatient (BNVA) | payer MEDICAID, SELFPAY | PROVIDERS: Visit Provider Obstetrics & Gynecology | DX: Z01.419 Encounter for gynecological examination (general) (routine) without abnormal findings (principal); N93.9 Abnormal uterine and vaginal bleeding, unspecified | CPT/HCPCS: 87624 ==

== ENCOUNTER 2024-12-08 16:05 | Outpatient (CLI) | payer MEDICAID, SELFPAY ==
--- NOTE | 2024-12-08 16:30 | US_ITS ---
WS: [id number] US transvaginal [id number] HISTORY: N93.9 - Abnormal uterine and vaginal bleeding, unspecified, postmenopausal bleeding. COMPARISON: None available. Uterus: 6.4 cm x 4.2 cm x 3.3 cm. Uterus is difficult to visualize. The uterus is tipped posteriorly. No fibroid identified. Endometrium: 1.1 cm. Limited visualization of the endometrium but the endometrium does appear enlarged. There is no discrete mass or increased vascularity. Right ovary: 2.2 cm x 1.4 cm x 1.8 cm. Normal size and vascularity, no cystic or solid masses. Left ovary: 1.7 cm x 1.2 cm x 1.0 cm. Normal size and vascularity, no cystic or solid masses. No free fluid in the cul-de-sac. US/US transvaginal [id number] IMPRESSION: 1. Abnormal endometrium in a postmenopausal patient with abnormal uterine blee ding. Endometrium measures 1.1 cm. Recommend hysteroscopy and biopsy. 2. No fibroid. 3. Normal ovaries.
== END 2024-12-08 16:06 | disposition home or self-care (01) ==
LOC: RAD 16:07
PROVIDERS: PCP Nurse Practitioner Family; Visit Provider Obstetrics & Gynecology
DX: N93.9 Abnormal uterine and vaginal bleeding, unspecified (principal); N85.4 Malposition of uterus; N85.00 Endometrial hyperplasia, unspecified
CPT/HCPCS: 76830

== ENCOUNTER → 2025-01-02 08:15 | Outpatient (BNVA) | payer MEDICAID, SELFPAY | PROVIDERS: PCP Nurse Practitioner Family; Visit Provider Obstetrics & Gynecology | DX: R87.613 High grade squamous intraepithelial lesion on cytologic smear of cervix (HGSIL) (principal); B97.7 Papillomavirus as the cause of diseases classified elsewhere | CPT/HCPCS: 81025 ==

== ENCOUNTER 2025-01-28 07:04 | Outpatient (CLI) | payer OTHER, MEDICAID, SELFPAY ==
--- NOTE | 2025-01-28 07:15 | MRR_ITS ---
PROCEDURE INFORMATION: Exam: MR Pelvis Without and With Contrast, Uterus and Adnexa Exam date and time: 01/28/2025 7:30 AM Age: 50 years old Clinical indication: Pelvic pain; Additional info: R93.89 - abnormal findings on diagnostic imaging of other. . . 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 Exam focused on the uterus, cervix, and adnexa. Contrast material: MULTIHANCE; Contrast volume: 15 ml; Contrast route: INTRAVENOUS (IV); COMPARISON: US transvaginal [id number] 12/08/2024 4:39 PM FINDINGS: Uterus: Uterus measures a proximally 6.3 x 4.3 x 4.7 cm. No myometrial masses are identified. The cervix is grossly normal. The endometrium is indistinct on the T2 weighted sequence through is. The endometrium is best visualized on image 427 of series 1800 of the dynamic postcontrast series, measures up to 12 mm. No obvious adenosis is identified. Right ovary/adnexa: Ovary is normal in size. Normal follicles. Left ovary/adnexa: Ovary is normal in size. Normal follicles. Vagina: The vaginal canal is grossly normal. Intraperitoneal space: No free fluid. Lymph nodes: No enlarged nodes. Bones/joints: Unremarkable. No suspicious lesions. Soft tissues: Unremarkable. Other findings: The ovaries are not identified. MR/MR pelvis wo/w con [id number] IMPRESSION: 1. The endometrium measures up to 12 mm, best seen on dynamic contrast sequences as discussed above. No obvious adenosis or masses identified. 2. No myometrial masses identified. 3. The ovaries are not visualized.
[2025-01-28] MEDS: gadobenate dimeglumine 20 mL vial 17 ML IV (08:49)
== END 2025-01-28 07:05 | disposition home or self-care (01) ==
PROVIDERS: PCP Nurse Practitioner Family; Visit Provider Obstetrics & Gynecology
DX: R93.89 Abnormal findings on diagnostic imaging of other specified body structures (principal); N95.0 Postmenopausal bleeding
CPT/HCPCS: 72197

== ENCOUNTER 2025-01-29 06:21 | Day surgery (SDC) | payer OTHER, MEDICAID, SELFPAY ==
[2025-01-29] VITALS (10 sets, daily range): BP systolic 95–118; BP diastolic 58–96; PULSE 72–91; RESP 17–18; TEMP 36.1–36.6; O2SAT 97–100; BMI 24.6
--- NOTE | 2025-01-29 06:01 | W.PM.OPSFHP ---
Same Day Surgery H&P Indication for Procedure/HPI DATE OF PROCEDURE: January 29, 2025 CHIEF COMPLAINT/INDICATIONFOR SURGICAL PROCEDURE: 50yo, smoker with abnormal endometrium in a postmenopausal patient with abnormal uterine bleeding. Endometrium measures 1.1 cm. Low grade cervical dysplasia on colposcopic bx. PREOP DIAGNOSIS: Postmenopausal abnormal uterine bleeding with abnormal endometrial stripe. PLANNED PROCEDURE: Operation Date: 01/29/25 07:55 Proposed Procedures p Hysteroscopy with Dilatation and Curettage (D&C) [id number] N95.0(Not Applicable) - Shayne Trevino MD s POSSIBLE Poylpectomy(Not Applicable) - Shayne Trevino MD Medications/Allergies* Home Medications ?Medication ?Instructions ?Recorded ?Confirmed ?Type ascorbate calcium (vitamin C) 500 500 mg PO DAILY 11/27/24 01/28/25 History mg tablet cholecalciferol (vitamin D3) 625 PO 11/27/24 01/02/25 History mcg (25,000 unit) capsule coenzyme Q10 100 mg capsule (Co 100 mg PO DAILY 11/27/24 01/28/25 History Q-10) creatine monohydrate 1 gram g PO 11/27/24 01/02/25 History chewable tablet cyanocobalamin (vitamin B-12) 5,000 mcg PO DAILY 11/27/24 01/28/25 History 5,000 mcg capsule inositol 2,000 mg-D chiro inositol ea PO 11/27/24 01/02/25 History 50 mg oral powder packet multivit with cap PO 11/27/24 01/02/25 History mins-methyltetrahydrofolate glucosam 170 mcg DFE capsule oregano oil 1,500 mg capsule mg PO 11/27/24 01/02/25 History phytonadione (vitamin K1) 100 mcg 100 mcg PO DAILY 11/27/24 01/28/25 History tablet vitamin E (dl, acetate) 450 mg 450 mg PO DAILY 11/27/24 01/28/25 History (1,000 unit) capsule meclizine 50 mg tablet 50 mg PO DAILY PRN Anxiety 01/02/25 01/28/25 History amoxicillin 500 mg-potassium 1 tab PO BID 01/28/25 01/28/25 History clavulanate 125 mg tablet (Augmentin) Allergies/Adverse Reactions Allergy/AdvReac Type Severity Reaction Status Date / Time amitriptyline AdvReac Intermediate ADR-Agitate Verified 01/28/25 11:20 d bupropion (From Wellbutrin) AdvReac Intermediate ADR-Agitate Verified 01/28/25 11:20 d clonazepam AdvReac Intermediate ADR-Agitate Verified 01/28/25 11:20 d diphenhydramine (From AdvReac Intermediate ADR-Irritab Verified 01/28/25 11:20 Benadryl) le divalproex sodium (From AdvReac Intermediate ADR-Agitate Verified 01/28/25 11:20 Depakote) d duloxetine (From Cymbalta) AdvReac Intermediate ADR-Agitate Verified 01/28/25 11:20 d escitalopram (From Lexapro) AdvReac Intermediate ADR-Agitate Verified 01/28/25 11:20 d gabapentin AdvReac Intermediate ADR-Agitate Verified 01/28/25 11:20 d haloperidol (From Haldol) AdvReac Intermediate ADR-Agitate Verified 01/28/25 11:20 d hydroxyzine (From Vistaril) AdvReac Intermediate ADR-Agitate Verified 01/28/25 11:20 d iron AdvReac Intermediate ADR-Irritab Verified 01/28/25 11:20 le lithium AdvReac Intermediate ADR-Agitate Verified 01/28/25 11:20 d methocarbamol AdvReac Intermediate ADR-Agitate Verified 01/28/25 11:20 d montelukast (From Singulair) AdvReac Intermediate ADR-Agitate Verified 01/28/25 11:20 d paliperidone (From Invega) AdvReac Intermediate ADR-Agitate Verified 01/28/25 11:20 d pantoprazole (From Protonix) AdvReac Intermediate ADR-Irritab Verified 01/28/25 11:20 le paroxetine (From Paxil) AdvReac Intermediate ADR-Agitate Verified 01/28/25 11:20 d risperidone (From Risperdal) AdvReac Intermediate ADR-Agitate Verified 01/28/25 11:20 d Pertinent History/Comorbid Conditions* Family History (Updated 11/27/24 @ 13:18 by Zeyad Ingram LPN) Diabetes Grandmother Hypertension Father Stroke Grandmother Social History Smoking and tobacco/nicotine status: current every day tobacco/nicotine user Pertinent Exam Findings alert, oriented x 3, clear to auscultation bilaterally, regular rate & rhythm and procedure specific exam findings (Thickened endometrium and AUB) Recommendations Surgery/Procedure today Coding Level of Care Code Acute Code for Chg Fwd
--- NOTE | 2025-01-29 07:41 | ANES.PREANE2 ---
Pre-Anesthetic Assessment Height/Weight: Height 5 ft 5 in Weight 148 lb Temp Pulse Resp BP Pulse Ox O2 Del Method 97.4 F L 76 17 118/69 97 Room Air 01/29/25 06:43 01/29/25 06:43 01/29/25 06:43 01/29/25 06:43 01/29/25 06:43 01/29/25 06:45 Preop Diagnosis: Postmenopausal abnormal uterine bleeding with abnormal endometrial stripe. Operation Date: 01/29/25 07:55 Proposed Procedures p Hysteroscopy with Dilatation and Curettage (D&C) 97793 [id number] N95.0(Not Applicable) - Shayne Trevino MD s POSSIBLE Poylpectomy(Not Applicable) - Shayne Trevino MD Was Beta Anastasiya taken within 24 hours: N/A Was Clonidine taken within 24 hours: N/A Social No alcohol and No tobacco Exam alert, oriented x 3, clear to auscultation bilaterally and regular rate & rhythm Airway Submandibular: within normal limits Cervical ROM: within normal limits Mallampati: Class II Comments: Comments: Dental implants on top Anesthetic Plan ASA status: 2 Anesthesia: General Other: No prior issues with anesthesia, patient states that she woke up during the DNC wants NPO since yesterday evening Quit smoking in November Denies any cardiac or pulmonary issues hCG negative METs greater than 4 Plan for general anesthesia Medications/Allergies Home Medications ?Medication ?Instructions ?Recorded ?Confirmed ?Last Taken ?Type ascorbate calcium (vitamin C) 500 500 mg PO DAILY 11/27/24 01/28/25 01/28/25 History mg tablet cholecalciferol (vitamin D3) 625 PO 11/27/24 01/02/25 01/28/25 History mcg (25,000 unit) capsule coenzyme Q10 100 mg capsule (Co 100 mg PO DAILY 11/27/24 01/28/25 01/28/25 History Q-10) creatine monohydrate 1 gram g PO 11/27/24 01/02/25 01/28/25 History chewable tablet cyanocobalamin (vitamin B-12) 5,000 mcg PO DAILY 11/27/24 01/28/25 01/28/25 History 5,000 mcg capsule inositol 2,000 mg-D chiro inositol ea PO 11/27/24 01/02/25 01/28/25 History 50 mg oral powder packet multivit with cap PO 11/27/24 01/02/25 01/28/25 History mins-methyltetrahydrofolate glucosam 170 mcg DFE capsule nicotine 21 mg/24 hr daily 1 patch transdermal DAILY #28 ea 11/27/24 01/28/25 01/14/25 Rx transdermal patch oregano oil 1,500 mg capsule mg PO 11/27/24 01/02/25 01/28/25 History phytonadione (vitamin K1) 100 mcg 100 mcg PO DAILY 11/27/24 01/28/25 01/28/25 History tablet vitamin E (dl, acetate) 450 mg 450 mg PO DAILY 11/27/24 01/28/25 01/28/25 History (1,000 unit) capsule meclizine 50 mg tablet 50 mg PO DAILY PRN Anxiety 01/02/25 01/28/25 12/30/24 History amoxicillin 500 mg-potassium 1 tab PO BID 01/28/25 01/28/25 01/28/25 History clavulanate 125 mg tablet (Augmentin) Allergies Allergy/AdvReac Type Severity Reaction Status Date / Time amitriptyline AdvReac Intermediate ADR-Agitate Verified 01/29/25 06:36 d bupropion (From Wellbutrin) AdvReac Intermediate ADR-Agitate Verified 01/29/25 06:36 d clonazepam AdvReac Intermediate ADR-Agitate Verified 01/29/25 06:36 d diphenhydramine (From AdvReac Intermediate ADR-Irritab Verified 01/29/25 06:36 Benadryl) le divalproex sodium (From AdvReac Intermediate ADR-Agitate Verified 01/29/25 06:36 Depakote) d duloxetine (From Cymbalta) AdvReac Intermediate ADR-Agitate Verified 01/29/25 06:36 d escitalopram (From Lexapro) AdvReac Intermediate ADR-Agitate Verified 01/29/25 06:36 d gabapentin AdvReac Intermediate ADR-Agitate Verified 01/29/25 06:36 d haloperidol (From Haldol) AdvReac Intermediate ADR-Agitate Verified 01/28/25 11:20 d hydroxyzine (From Vistaril) AdvReac Intermediate ADR-Agitate Verified 01/29/25 06:36 d iron AdvReac Intermediate ADR-Irritab Verified 01/29/25 06:36 le lithium AdvReac Intermediate ADR-Agitate Verified 01/29/25 06:36 d methocarbamol AdvReac Intermediate ADR-Agitate Verified 01/29/25 06:36 d montelukast (From Singulair) AdvReac Intermediate ADR-Agitate Verified 01/29/25 06:36 d paliperidone (From Invega) AdvReac Intermediate ADR-Agitate Verified 01/29/25 06:36 d pantoprazole (From Protonix) AdvReac Intermediate ADR-Irritab Verified 01/29/25 06:36 le paroxetine (From Paxil) AdvReac Intermediate ADR-Agitate Verified 01/29/25 06:36 d risperidone (From Risperdal) AdvReac Intermediate ADR-Agitate Verified 01/29/25 06:36 d Current Medications Generic Name Dose Route Start Last Admin Trade Name Freq PRN Reason Stop Dose Admin Sodium Chloride 1,000 mls @ 30 mls/hr 01/29/25 06:30 01/29/25 07:04 Sodium Chloride 0.9% IV 01/30/25 06:29 30 mls/hr .Q24H BRIDGET Administration PFSH Anesthesia Family History Father Hypertension Grandmother Diabetes Stroke Social History Smoking and tobacco/nicotine status: current every day tobacco/nicotine user
--- NOTE | 2025-01-29 09:58 | PM.OP2 ---
Brief Operative Note Date of procedure: 01/29/25 Pre-op diagnosis: Abnormal endometrial stripe,PMB Post-op diagnosis: same Procedure Done: Hysteroscopy with D&C Surgeon: Shayne Trevino Estimated blood loss (mL): 10 Complications: None Post-op Plan: with instructions Condition: stable Disposition: same day
--- NOTE | 2025-01-29 10:03 | P.OP_ITS ---
Operative Report Date of procedure: January 29, 2025 Pre-op diagnosis: Abnormal endometrial stripe,PMB Post-op diagnosis: Same Post-op findings: Endometrial thickening Procedure done: Diagnostic hysteroscopy D&C Specimens removed/disposition: Endometrial Curettings Surgeon: Shayne Trevino MD Estimated blood loss: 10ml Complications: None Findings: Endometrium,no polyps Condition: stable Disposition: same day Brief History: 50yo, smoker with abnormal endometrium in a postmenopausal patient with abnormal uterine bleeding. Endometrium measures 1.1 cm. Low grade cervical dysplasia on colposcopic bx. Procedure: The patient was taken to the operating room and placed in dorsal lithotomy position. After adequate anesthesia was obtained, a time-out was performed. The patient was prepped and draped in the usual sterile fashion. A weighted speculum was placed in the vagina. The cervix was visualized and grasped with a tenaculum. The uterus was sounded to 6 cm. The cervix was dilated using Star metal dilators to accommodate the hysteroscope. A diagnostic hysteroscope was introduced into the endocervical canal and adva nced into the uterine cavity under direct visualization using NS as the distending medium. Systematic examination of the endocervical canal, endometrial cavity, bilateral tubal ostia, anterior wall, posterior wall, and fundus was performed. The uterine cavity appeared normal with no evidence of polyps, fibroids, adhesions, or other structural abnormalities. Following completion of hysteroscopy, the hysteroscope was removed. Sharp curettage of the endometrial cavity was then performed in a systematic fashion. Tissue was obtained and submitted to pathology for histopathologic evaluation. The tenaculum and speculum were removed. Hemostasis was confirmed. The patient tolerated the procedure well without complications and was taken to the recovery room in stable condition.
--- NOTE | 2025-01-29 10:33 | ANE.PACU2 ---
Inpatient post-anesthesia follow up: Airway intact: Yes Vital signs: Temperature 97.2 F Pulse Rate 91 Respiratory Rate 18 Blood Pressure 101/78 Pulse Oximetry 98 Oxygen Delivery Me thod Room Air Oxygen Flow Rate 8 Fraction of Inspir ed Oxygen Hydration adequate: Yes Nausea and vomiting: No Pain level: 1 Mental status: Baseline
== END 2025-01-29 10:33 | disposition home or self-care (01) ==
PROVIDERS: PCP Nurse Practitioner Family; Visit Provider Obstetrics & Gynecology
PROC: 0UB98ZZ Excision of Uterus, Via Natural or Artificial Opening Endoscopic (ICD-10-PCS; CPT 58558; principal; 2025-01-29 07:45)
DX: R93.89 Abnormal findings on diagnostic imaging of other specified body structures (principal); N95.0 Postmenopausal bleeding; Z87.891 Personal history of nicotine dependence
CPT/HCPCS: 58558; 51702; 88305; A4216; J1100; J1885; J2250; J2405; J2704; J3010; J7030; J9999